=== PATIENT | male | born 1975 | race Caucasian/White ===

== ENCOUNTER 2020-12-03 14:36 | Emergency (ER) | payer MEDICAID, SELFPAY ==
[2020-12-03 15:10] VITALS: BP 138/84; BP 158/84; PULSE 78; RESP 14; TEMP 36.7; O2SAT 99; BMI 30.2
[2020-12-03 16:04] LABS: Appearance Urine CLEAR; Color Urine YELLOW; Glucose Urine UA NEG (NEG); Leukocyte Esterase Urine NEG (NEG); Nitrite Urine NEG (NEG); Specific Gravity - Urine 1.015 (1.005-1.025); Urine Blood NEG (NEG); Urine Ketones NEG (NEG); Urine Protein NEG (NEG-TRACE)
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
[2020-12-03 16:19] LABS: Amphetamine Screen Urine Not Detected (Not Detect); Barbiturates, Urine Not Detected (Not Detect); Benzodiazepines Screen Urine Not Detected (Not Detect); Cannabinoid Screen Urine Not Detected (Not Detect); Cocaine Screen Urine Not Detected (Not Detect); Fentanyl, urine Not Detected (Not Detect); Opiate Screen Urine Not Detected (Not Detect); Phencyclidine Screen Urine Not Detected (Not Detect)
[2020-12-03 18:05] LABS: COVID-19 Test Negative (Negative)
--- NOTE | 2020-12-03 19:22 | MHC.CARE ---
CARE team contacted Juan re: pt who arrived on a Sect 12a from community after being seen by Juan. Clarification needed on his status in the ED. Initial evaluation has been completed, pt is for an [facility] follow up on Thursday due to concerns that pt may have been under the influence during assessment, and likely because he had huffed aerosol spray during the assessment itself. He will remain in ED pending [facility] re-evaluation tomorrow.
[2020-12-03 19:39] LABS: MANUAL DIFF FLAG NO
[2020-12-03 19:41] LABS: Basophils Percent Auto 0.2 % (0-2); Eosinophils Absolute Auto 0.1 X10*3/uL (0.0-0.4); Eosinophils Percent Auto 1.6 % (0-4); Hematocrit 41.8 % (42-52); Hemoglobin 14.6 g/dl (14.0-18.0); Imm Gran Abs Auto 0.03 X10*3/uL (0.00-0.03); Imm Gran Pct Auto 0.4 % (0.0-0.4); Lymphocytes Absolute Auto 2.9 X10*3/uL (1.2-4.9); Lymphocytes Percent Auto 35.9 % (20-40); Mean Corpuscular HGB Conc 34.9 g/dl (31.0-36.0); Mean Corpuscular Hemoglobin 32.2 pg (27.0-33.0); Mean Corpuscular Volume 92.1 fL (80-98); Mean Platelet Volume 10.1 fL (9.4-12.4); Monocytes Absolute Auto 0.6 X10*3/uL (0.1-1.2); Monocytes Percent Auto 7.9 % (2-11); Neutrophils Absolute Auto 4.3 X10*3/uL (2.0-8.3); Platelet Count 172 X10*3/uL (160-400); Red Blood Count 4.54 X10*6/uL (4.60-5.80); Red Cell Distribution Width 13.2 % (11.0-16.0)
[2020-12-03 19:53] LABS: Ethanol < 10 mg/dL
[2020-12-03 19:57] LABS: Alanine Aminotransferase 12 U/L (0-40); Albumin Level 4.6 g/dL (3.5-5.0); Alkaline Phosphatase 232 U/L (39-117); Anion Gap 14 (12-20); Aspartate Amino Transferase 18 U/L (5-37); Bilirubin Direct 0.3 mg/dL (0.0-0.5); Bilirubin Total 0.9 mg/dL (0.0-1.0); Blood Urea Nitrogen 16 mg/dL (9-16); Calcium 9.2 mg/dL (8.4-10.2); Carbon Dioxide 22 mmol/L (22-29); Chloride 107 mmol/L (96-108); Creatinine Clr Calc Pharmacy 130.8; Estimated Glomerular Filt Rate > 60; Glucose Random 83 mg/dL (60-115); Potassium 3.9 mmol/L (3.3-5.1); Sodium 139 mmol/L (135-145); Total Protein 7.3 g/dL (6.5-8.0)
[2020-12-03] MEDS: Nicotine Polacrilex 2 MG GUM BUCCAL (22:49)
[2020-12-04 04:06] VITALS: BP 131/73; PULSE 80; RESP 17; TEMP 36.9; O2SAT 99
--- NOTE | 2020-12-04 05:49 | PC.NURSE ---
Patient slept through the night, fixated on his methadone dose, patient think he should not be here, patient is Jacky follow up with N in the morning, VSS, refusing his medication stating he does need one, he is doing fine on Methadone, VSS, will continue to monitor.
--- NOTE | 2020-12-04 06:37 | PC.NURSE ---
Patient's methadone dose verified/faxed to pharmacy, med rec completed, pending provider approval.
--- NOTE | 2020-12-04 07:05 | PC.NURSE ---
patient appears to remain asleep at present respirations are even and unlabored, patient appears in no distress
[2020-12-04] MEDS: methADONE HCl 20 MG/2 ML ORAL.CONC 135 MG PO (08:00)
[2020-12-04 08:01] VITALS: BP 131/73; PULSE 80
[2020-12-04 08:20] VITALS: BP 132/88; PULSE 79; RESP 16; TEMP 36.6; O2SAT 97
== END 2020-12-04 12:33 | disposition home or self-care (01) ==
PROVIDERS: Nurse Practitioner Family; Emergency Provider Emergency Medicine
DX: F33.1 Major depressive disorder, recurrent, moderate (principal); R41.82 Altered mental status, unspecified; R45.851 Suicidal ideations; F18.10 Inhalant abuse, uncomplicated; F19.959 Other psychoactive substance use, unspecified with psychoactive substance-induced psychotic disorder, unspecified; Z20.822 Contact with and (suspected) exposure to COVID-19; Z79.899 Other long term (current) drug therapy
CPT/HCPCS: 36415; 80048; 80076; 80307; 81003; 82077; 85025; 87635; 99284

== ENCOUNTER → 2021-03-19 12:30 | Outpatient (BNV) | payer MEDICAID, SELFPAY | PROVIDERS: PCP Internal Medicine; Visit Provider Internal Medicine Medical Oncology | DX: R74.8 Abnormal levels of other serum enzymes (principal) | CPT/HCPCS: 99203; 99213 ==

== ENCOUNTER 2021-04-01 14:34 | Outpatient (REF) | payer MEDICAID, SELFPAY ==
--- NOTE | ~2021-04-01 | US_ITS ---
EXAMINATION: US VENOUS ULTRASOUND WITH DOPPLER LOWER EXTREMITY, BILATERAL CLINICAL INFORMATION: Bilateral lower extremity edema COMPARISON: None TECHNIQUE: Ultrasound of the deep veins is performed from the hip to the calf with compression sonography and color and pulse Doppler assessment. Spectral analysis with color-flow imaging is performed. FINDINGS: RIGHT: There is normal venous compression and respiratory variation and augmented flow. The visualized common femoral vein, superficial femoral vein, profunda femoral vein, popliteal vein, and the trifurcation region shows no evidence of deep venous thrombosis. There is no significant popliteal fossa cyst. LEFT: There is normal venous compression and respiratory variation and augmented flow. The visualized common femoral vein, superficial femoral vein, profunda femoral vein, popliteal vein, and the trifurcation region shows no evidence of deep venous thrombosis. There is no significant popliteal fossa cyst. If the patient's symptoms persist, followup ultrasound in 5 days 7 days might be of value to exclude proximal propagation from a non-visualized calf vein. US/US venous duplex LE BI IMPRESSION: No DVT identified involving either lower extremity.
== END 2021-04-01 14:35 | disposition home or self-care (01) ==
LOC: HO.HMGCX 14:34
PROVIDERS: Visit Provider Emergency Medicine
DX: R60.0 Localized edema (principal)
CPT/HCPCS: 93970

== ENCOUNTER → 2021-04-30 11:21 | Outpatient (BNVA) | payer MEDICAID, SELFPAY | PROVIDERS: PCP Internal Medicine; Visit Provider Surgery Vascular Surgery | DX: M79.89 Other specified soft tissue disorders (principal); I83.11 Varicose veins of right lower extremity with inflammation | CPT/HCPCS: 99202 ==

== ENCOUNTER → 2021-05-14 12:14 | Outpatient (BNVA) | payer MEDICAID, SELFPAY | PROVIDERS: PCP Internal Medicine; Referring Provider Internal Medicine; Visit Provider Internal Medicine | DX: R07.2 Precordial pain (principal); R06.02 Shortness of breath; M79.89 Other specified soft tissue disorders | CPT/HCPCS: 93005; 99202 ==

== ENCOUNTER → 2021-05-22 10:07 | Outpatient (REF) | payer MEDICAID, SELFPAY ==
--- NOTE | ~2021-05-22 | NM_ITS ---
Lexiscan Myocardial perfusion study Indication: Chest pain, assess for coronary disease and ischemia Technique: The patient was brought in for a Lexiscan perfusion study on 05/22/2021 and was injected 0.4 mg of Lexiscan intravenously. Within a minute of this injection 35 mCi of sestamibi was given intravenously. Images were obtained using the SPECT gamma camera interlaced with the gating device. Images were obtained in supine position. Resting perfusion study was performed on 05/29/2021. Patient was administered 35 mCi of sestamibi intravenously at rest. Images were then obtained in supine position. Total DLP 100mGy-cm. Images were processed with the software and compared side to side in short axis, horizontal long axis and vertical long axis views. Findings: Raw acquisition reviewed. The stress perfusion study showed no significant perfusion abnormality. Attenuation corrected images are not of good quality. The gated study shows normal LV systolic function with calculated LVEF of 61%. LV cavity is normal in size. The gated study shows normal wall thickening and contraction of segments. Resting study shows no significant perfusion abnormality. Gating at rest reveals normal wall motion with ejection fraction at 62%. The findings are consistent with no definite reversible or fixed perfusion defects. NM/NM cardiolite stress test Impression: 1. Myocardial perfusion imaging study shows no clear evidence of any ischemia or infarction. Likely normal myocardial perfusion. 2. Gated LVEF is 61% during stress and 62% during rest. 3. Transient ischemic dilatation not present. EKG component of the test reported separately.
--- NOTE | 2021-05-22 10:09 | CA_ITS ---
Acquisition Time: 2021-05-22 10:19:55 Total Exercise Time: 00:02:00 Test Indications: CP, SOB Medications: SEE CHART Protocol: LEXISCAN Max HR: 100 BPM 56% of Pred: 176 BPM Max BP: 124/064 mmHG Max Work Load: 1.0 METS Pharmacological stress test with Lexiscan injection, while sitting and kicking legs, without anginal symptoms, without arrythmia, with normotensive response to injection, with nondiagnostic EKG for ischemia. In recovery he reported feeling weird which was treated with Aminophylline 75mg IVP to reverse Lexiscan with resolution of symptom. Nuclear images pending. Test reviewed with Dr Wall. Referred By: Joey Zaidi Overread By: IMTIAZ JONES
== END ==
LOC: HO.CARD 10:07
PROVIDERS: Visit Provider Internal Medicine
DX: R07.2 Precordial pain (principal); R06.02 Shortness of breath
CPT/HCPCS: 78452; 93017; A9500; J2785

== ENCOUNTER 2021-05-29 10:46 | Outpatient (REF) | payer MEDICAID, SELFPAY ==
--- NOTE | ~2021-05-29 | US_ITS ---
EXAMINATION: US LOWER EXTREMITY VENOUS (REFLUX EXAM), BILATERAL CLINICAL INDICATION: This is a 46-year-old male with venous insufficiency. Varicose veins. Bilateral lower extremity edema. COMPARISON: None. TECHNIQUE: Color flow triplex imaging and compression Doppler was performed to evaluate both the deep and the superficial systems bilaterally. To evaluate the superficial system, the examination was performed in the upright position. Color-flow Doppler ultrasound and compression ultrasound were utilized. In addition, maneuvers were utilized to demonstrate reflux. FINDINGS: 1. DEEP VENOUS ULTRASOUND OF THE RIGHT LOWER EXTREMITY: Common Femoral Vein: Compressible, normal respiratory variation and augmented flow. Femoral vein: Compressible, normal color flow and augmentation. Popliteal Vein: Compressible, normal augmentation. Deep Reflux: There is no evidence of reflux in the deep system in either the common femoral vein or the popliteal vein. There is no evidence of a Carson's cyst. 2. SUPERFICIAL ULTRASOUND WITH DOPPLER OF RIGHT LOWER EXTREMITY: GREAT SAPHENOUS VEIN: Saphenofemoral Junction: 0.7 cm. There is no reflux at the junction. Mid Thigh: 0.4 cm Above Knee: 0.4 cm. There is no reflux at this level or above. Below Knee: 0.3 cm. The reflux time is 1784 ms. Mid Calf: 0.3 cm. The reflux time is 1006 and 24 ms. Ankle: 0.3 cm. The reflux time is 1000 ms. GSV REFLUX: No evidence of reflux. DUPLICATED GREAT SAPHENOUS VEIN: There is a 0.3 cm duplicated lateral great saphenous vein without reflux. SMALL SAPHENOUS VEIN: Proximal: 0.3 cm Distal: 0.2 cm SSV REFLUX: No evidence of reflux. VEIN OF GIACOMINI: None Imaged. PERFORATORS: There is a 0.2 cm proximal calf and mid calf, respectively, bobbin washer without reflux. VARICOSITIES: There are 0.3 cm proximal thigh, at the knee, proximal calf varicose veins without reflux. 3. DEEP VENOUS ULTRASOUND OF THE LEFT LOWER EXTREMITY: Common Femoral Vein: Compressible, normal respiratory variation and augmented flow. Femoral Vein: Compressible, normal color flow and augmentation. Popliteal Vein: Compressible, normal augmentation. Deep Reflux: There is no evidence of reflux in the deep system in either the common femoral vein or the popliteal vein. There is no evidence of a Carson's cyst. 4. SUPERFICIAL ULTRASOUND WITH DOPPLER OF LEFT LOWER EXTREMITY: GREAT SAPHENOUS VEIN: Saphenofemoral Junction: 0.7 cm. There is no reflux at the junction. Mid Thigh: 0.2 cm Above Knee: 0.3 cm. There is no reflux at this level and above. Below Knee: 0.4 cm. The reflux time is 2556 ms. Mid Calf: 0.2 cm. There is no reflux. Ankle: 0.2 cm. There is no reflux. GSV REFLUX: No evidence of reflux. DUPLICATED GREAT SAPHENOUS VEIN: There is a 0.4 cm duplicated lateral great saphenous vein without reflux. SMALL SAPHENOUS VEIN: Proximal: 0.3 cm Distal: 0.2 cm SSV REFLUX: No evidence of reflux. VEIN OF GIACOMINI: None Imaged. PERFORATORS: There is a 0.2 cm bobbin washer at the knee without reflux. VARICOSITIES: There is a 0.3 cm proximal thigh varicose vein without reflux. US/US venous duplex LE BI IMPRESSION: 1. There are patent bilateral great saphenous veins without reflux at the saphenofemoral junction or within the thigh. 2. There are patent bilateral duplicated lateral great saphenous veins and small saphenous veins, respectively, without evidence of reflux. 3. There are patent bilateral varicose veins without reflux.
[2021-05-29 10:58] LABS: MANUAL DIFF FLAG NO
[2021-05-29 11:36] LABS: Basophils Absolute Auto 0.1 X10*3/uL (0.0-0.2); Eosinophils Absolute Auto 0.2 X10*3/uL (0.0-0.4); Eosinophils Percent Auto 4.3 % (0-4); Hemoglobin 13.4 g/dl (14.0-18.0); Imm Gran Abs Auto 0.03 X10*3/uL (0.00-0.03); Imm Gran Pct Auto 0.6 % (0.0-0.4); Lymphocytes Absolute Auto 1.9 X10*3/uL (1.2-4.9); Lymphocytes Percent Auto 37.2 % (20-40); Mean Corpuscular HGB Conc 34.4 g/dl (31.0-36.0); Mean Corpuscular Hemoglobin 30.9 pg (27.0-33.0); Mean Corpuscular Volume 89.9 fL (80.0-98.0); Mean Platelet Volume 10.3 fL (9.4-12.4); Monocytes Absolute Auto 0.4 X10*3/uL (0.1-1.2); Monocytes Percent Auto 8.2 % (2-11); Neutrophils Absolute Auto 2.5 x10*3/uL (2.0-8.3); Neutrophils Percent Auto 48.7 % (45-73); Platelet Count 184 X10*3/uL (160-400); Red Blood Count 4.34 X10*6/uL (4.60-5.80); Red Cell Distribution Width 13.5 % (11.0-16.0); White Blood Count 5.1 X10*3/uL (4.8-10.8)
[2021-05-29 12:17] LABS: Cholesterol 191 mg/dL; HDL Cholesterol 25 mg/dL; Triglycerides 603 mg/dL
[2021-05-29 12:22] LABS: Alanine Aminotransferase 48 U/L (0-40); Albumin Level 3.7 g/dL (3.5-5.0); Alkaline Phosphatase 254 U/L (39-117); Anion Gap 14 (12-20); Aspartate Amino Transferase 43 U/L (5-37); Bilirubin Total 0.9 mg/dL (0.0-1.0); Blood Urea Nitrogen 6 mg/dL (9-16); Calcium 8.5 mg/dL (8.4-10.2); Carbon Dioxide 22 mmol/L (22-29); Chloride 107 mmol/L (96-108); Estimated Glomerular Filt Rate > 60; Glucose Random 128 mg/dL (60-115); Potassium 3.9 mmol/L (3.3-5.1); Sodium 139 mmol/L (135-145); Total Protein 6.6 g/dL (6.5-8.0)
== END 2021-05-29 10:47 | disposition home or self-care (01) ==
LOC: HO.US 10:46
PROVIDERS: Internal Medicine Medical Oncology; Absent Provider Nurse Practitioner Psychiatric/Mental Health; PCP Internal Medicine; Visit Provider Surgery Vascular Surgery
DX: I83.11 Varicose veins of right lower extremity with inflammation (principal); R60.0 Localized edema; R74.8 Abnormal levels of other serum enzymes; Z51.81 Encounter for therapeutic drug level monitoring; Z79.899 Other long term (current) drug therapy
CPT/HCPCS: 36415; 80053; 80061; 85025; 93970

== ENCOUNTER → 2021-05-30 14:13 | Outpatient (BNVA) | payer MEDICAID, SELFPAY | PROVIDERS: PCP Internal Medicine; Visit Provider Surgery Vascular Surgery | DX: I83.11 Varicose veins of right lower extremity with inflammation (principal) | CPT/HCPCS: 99212 ==

== ENCOUNTER → 2021-06-20 09:41 | Outpatient (REF) | payer MEDICAID, SELFPAY ==
--- NOTE | 2021-06-20 09:44 | CA_ITS ---
Transthoracic Echocardiogram Patient (Last, First, Middle): Vadim Colmenares, Gender: Male Date of : 1975 Age: 46 Procedure Date: 06/20/2021 Procedure Type: Transthoracic Echocardiogram Location: OP Height: 175.26 cm Weight: 103.42 kg BSA: 2.18 m2 Heart Rate: bpm BP: 120 / 80 mmHg Information Consultant: SB Referring MD: Joey Zaidi MD Insurance Collector: Vinay Wall MD Symptoms: R06.02 - Shortness of breath Study Quality: Technically Difficult ECG Rhythm: Sinus Conclusions: - 1. Normal LV systolic and diastolic function 2. Normal cardiac valvular Doppler 3. No gross pericardial effusion Findings Procedure Information Contrast agent, definity, is being given per protocol without apparent complications. Left Ventricle Normal left ventricular size, thickness, and systolic function. The visually estimated ejection fraction is between 60-65%. Spectral Doppler is indicative of a normal filling pattern. Right Ventricle Normal right ventricular cavity size and systolic function. Atria The left atrium is normal in size. Interatrial shunt cannot be excluded. The right atrium is normal in size. Aortic Valve The aortic valve structure and function is likely normal. There is no aortic valve stenosis. There is no aortic valve regurgitation. Mitral Valve Likely normal mitral valve structure and function. There is trace mitral valve regurgitation. There is no mitral valve stenosis. Pulmonic Valve The pulmonic valve was not well visualized. Tricuspid Valve The tricuspid valve was not well visualized. Tricuspid regurgitation envelope is inadequate for calculation of right ventricular systolic pressure. Great Vessels The aorta was not well visualized. The pulmonary artery was not well visualized. Venous The inferior vena cava is normal in size and collapses greater than 50% with inspiration. Pericardium/Pleural There is no evidence of pericardial effusion. Prior Study Comparison No prior study available for comparison. Measurements 2D Linear Measurements IVSd: 0.93 0.6-0.9/0.6-1.0 cm LVIDd: 4.83 3.9-5.3/4.2-5.9 cm LVIDd Index: 2.22 2.4-3.2/2.2-3.1 cm/m2 LVIDs: 3.05 2.0-3.6 cm LVPWd: 0.86 0.7-1.1 cm LA Diam: 3.70 2.7-3.8/3.0-4.0 cm LAIDs Index: 1.70 1.5-2.3 cm/m2 LV Mass: 184.67 67-162/88-224 g LV Mass Index: 84.71 43-95/49-115 g/m2 LVOT Diam: 2.30 3.0+(-)1.3 cm 2D Systolic Function EF 4C: 68.30 >55% EF 2C: 60.30 >55% EF BiP: 64.50 >55% Mitral Valve MV Pk E: 0.73 MV PK A: 0.48 MV Decel Time: 176.00 E/A: 1.50 E'Lateral: 11.00 E'Medial: 9.46 E/E' Med: 7.70 E/E' Lat: 6.70 PHT: 52.00 MVA PHT: 4.23 Decel [place]: 4.16 Aortic Valve AoV Pk Gildardo: 1.43 AoV Mn Gildardo: 0.98 AoV VTI: 0.27 AoV Pk Grad: 8.00 Aov Mn Grad: 4.00 SAMIA Cont.VTI: 2.90 LVOT LVOT Pk Gildardo: 1.05 LVOT Mn Gildardo: 0.70 LVOT VTI: 0.19 LVOT Pk Grad: 4.00 LVOT Mn Grad: 3.00 LVOT Diam: 2.30 LVOT Area: 4.15 Diastolic Function MV Pk E: 0.73 MV Pk A: 0.48 E/A: 1.50 E'Medial: 9.46 E/E' Med: 7.70 E' Laterial: 11.00 E/E' Lat: 6.70 Right Ventricle TAPSE (mm): 20.30 TVS' Gildardo: 11.50 Great Vessels Aorta Sinus of Valsalva: 2.90 2.0-3.[address] [place]: 2.85 1.7-3.4 cm Ao Asc: 2.70 2.1-3.4 cm Pulmonary Veins Pulm Vein S/D 0.80 Pulmonary Valve PV Pk Gildardo: 1.05 Peak PV Grad: 4.00 Updated in Other Vendor System with Status of Final Vinay Wall MD electronically signed on 06/20/2021 5:41:01 PM with status of Final
== END ==
LOC: HO.CARD 09:41
PROVIDERS: PCP Internal Medicine; Visit Provider Internal Medicine
DX: R06.02 Shortness of breath (principal)
CPT/HCPCS: 93306; Q9957

== ENCOUNTER 2021-06-27 08:36 | Day surgery (SDC) | payer MEDICAID, SELFPAY ==
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
[2021-06-27 08:28] VITALS: BMI 31.8
[2021-06-27 08:51] VITALS: BP 115/75; PULSE 89; RESP 18; TEMP 36.4; O2SAT 97
[2021-06-27] MEDS: Lactated Ringers 1,000 ML 100 ML IVCONT (09:01)
[2021-06-27 11:03] VITALS: BP 126/73; PULSE 80; RESP 16; TEMP 37; O2SAT 97
[2021-06-27 11:15] VITALS: BP 116/88; PULSE 74; RESP 16; O2SAT 97
--- NOTE | 2021-06-27 11:22 | PM.HEMONCBM ---
Bone Marrow Aspiration - Bone Marrow Aspiration Procedure:: *Service Date: [06/27/21] Pre Op Diagnosis:: Elevated AP. ?Myelofibrosis. Post Op Diagnosis:: Same. Surgeon:: Teresa Jaeger. Anesthesia:: Teresa Jaeger. Consent:: Informed consent obtained from the patient for the procedure. Pros and cons of biopsy explained. The patient was willing to proceed with the procedure under local anesthesia. Procedure in Detail:: *Service Date: 06/27/21. *Procedure: Bone marrow spread and biopsy. *Pre Op Dx: Myelofibrosis. *Post Op Dx: Same. *Surgeon: Teresa Jaeger. The patient was positioned prone. The left posterior superior iliac spine prepped and draped. Patient was anesthetized under MAC. Under aseptic precautions, 5 ml of 1% lidocaine used for local anesthesia. Bone marrow aspirate was taken. Seemed more like a dry tap. With the Jamshidi needle,a core biopsy obtained. Specimens were sent for Dc stain, flow cytometry and cytogenetics. Biopsy was sent for histology. The patient tolerated the procedure well. Bandage was applied and patient was positioned on his back for 10 to 15 minutes after the procedure. The patient was advised to call us if he develops any pain or swelling at the surgical site. Follow up in 2 weeks.
[2021-06-27 11:30] VITALS: BP 160/83; PULSE 80; RESP 16; TEMP 36.6; O2SAT 97
[2021-06-27 11:40] LABS: Bone Marrow SEE SEPARATE REPORT
== END 2021-06-27 12:03 | disposition home or self-care (01) ==
PROVIDERS: PCP Internal Medicine; Visit Provider Internal Medicine Medical Oncology
PROC: (CPT 38221; principal; 2021-06-27 10:00)
DX: R74.8 Abnormal levels of other serum enzymes (principal); R93.7 Abnormal findings on diagnostic imaging of other parts of musculoskeletal system; D75.81 Myelofibrosis; M89.8X9 Other specified disorders of bone, unspecified site; R53.83 Other fatigue; I83.819 Varicose veins of unspecified lower extremity with pain; F11.20 Opioid dependence, uncomplicated; F17.210 Nicotine dependence, cigarettes, uncomplicated; Z79.899 Other long term (current) drug therapy; Z88.0 Allergy status to penicillin; Z88.8 Allergy status to other drugs, medicaments and biological substances; Z87.828 Personal history of other (healed) physical injury and trauma
CPT/HCPCS: 38222; 36415; 85097; 88184; 88185; 88237; 88264; 88305; 88311; 88313; J1642; J2250

== ENCOUNTER → 2021-06-28 12:10 | Outpatient (BNVA) | payer MEDICAID, SELFPAY | PROVIDERS: PCP Internal Medicine; Visit Provider Surgery Vascular Surgery | DX: I83.11 Varicose veins of right lower extremity with inflammation (principal) | CPT/HCPCS: 36475 ==

== ENCOUNTER 2021-07-01 13:52 | Outpatient (REF) | payer MEDICAID, SELFPAY ==
--- NOTE | ~2021-07-01 | US_ITS ---
EXAMINATION: US VENOUS WITH DOPPLER LOWER EXTREMITY, RIGHT CLINICAL INFORMATION: Pain in right leg. Post radiofrequency ablation. COMPARISON: None TECHNIQUE: Ultrasound of the deep veins is performed from the hip to the calf with compression sonography and color and pulse Doppler assessment. Spectral analysis with color-flow imaging is performed. FINDINGS: There is normal venous compression and respiratory variation and augmented flow. The visualized common femoral vein, superficial femoral vein, profunda femoral vein, popliteal vein, and the trifurcation region shows no evidence of deep venous thrombosis. There is no significant popliteal fossa cyst. There is a clot visualized in the greater saphenous vein approximately 2.56 cm from common femoral venous junction. If the patient's symptoms persist, followup ultrasound in 5 days 7 days might be of value to exclude proximal propagation from a non-visualized calf vein. US/US venous duplex LE RT IMPRESSION: 1. No DVT demonstrated in the right lower extremity. 2. There is a clot in the right greater saphenous vein 2.56 cm from the common femoral venous junction status post radiofrequency ablation.
== END 2021-07-01 13:53 | disposition home or self-care (01) ==
LOC: HO.US 13:52
PROVIDERS: Visit Provider Surgery Vascular Surgery
DX: M79.604 Pain in right leg (principal)
CPT/HCPCS: 93971

== ENCOUNTER 2021-07-16 11:12 | Day surgery (SDC) | payer MEDICAID, SELFPAY ==
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
--- NOTE | ~2021-07-16 | CT_ITS ---
EXAMINATION: CT GUIDED BONE MARROW BIOPSY CLINICAL INFORMATION: Mild fibrosis. COMPARISON: None TECHNIQUE: Following explaining CT fluoroscopy-guided iliac crest bone marrow biopsy procedure, benefits and risks, a written consent was obtained. Anesthesia obtained its own consent. Patient was placed prone on CT fluoroscopy table and preliminary CT imaging was obtained. An optimal site was selected along the left posterior iliac crest and marked on the skin. The marked area was cleaned and draped in usual sterile manner. 1% lidocaine was injected at the skin and around the left posterior iliac crest spine periosteum. Through a small skin incision a 14-gauge guide needle was advanced and drilled through the posterior iliac crest cortex into the bone marrow. Coaxially a 14 Prydeinig needle was advanced with a drill and thick sclerotic core bone marrow tissue was obtained. Subsequently EDTA and heparin within 2 separate syringes was attached to the guide needle and bone marrow aspiration was performed. After obtaining enough of aspiration samples, the stylet was reintroduced and the guide needle was drilled back out. Complete hemostasis achieved at puncture site. Sterile dressing applied postprocedure. Sedation was provided by anesthesia department. FINDINGS: Successful CT fluoroscopy guided bone marrow biopsy and aspiration x2 with EDTA and heparin was performed. On preliminary CT imaging there is extensive sclerosis of pelvic bones. The soft tissues are normal. CT/CT biopsy aspirate bone marrow IMPRESSION: Successful CT fluoroscopy-guided iliac crest bone marrow biopsy and bone marrow aspiration x2 was performed.
[2021-07-16 12:16] VITALS: BMI 33.5
[2021-07-16 12:21] LABS: INTERNATIONAL NORM RATIO 1.1 (0.9-1.1); Prothrombin Time 12.1 SEC (9.9-13.0)
[2021-07-16 12:24] LABS: Partial Thromboplastin Time 40.1 SEC (24.1-38.0)
[2021-07-16 12:31] VITALS: BP 128/64; PULSE 71; RESP 15; TEMP 36.9; O2SAT 95
[2021-07-16] MEDS: Lactated Ringers 1,000 ML 100 ML IVCONT (12:39)
[2021-07-16 14:51] VITALS: BP 105/36; PULSE 85; RESP 18; TEMP 37; O2SAT 98
[2021-07-16] MEDS: Lidocaine HCl 1 % MPF 5 ML VIAL SUBCUT (14:54)
[2021-07-16 14:59] LABS: Bone Marrow SEE SEPARATE REPORT
[2021-07-16 15:11] VITALS: BP 109/68; PULSE 88; RESP 18; TEMP 37.1; O2SAT 97
[2021-07-16 15:21] VITALS: BP 107/70; PULSE 81; RESP 16; TEMP 37.1; O2SAT 97
== END 2021-07-16 15:31 | disposition home or self-care (01) ==
PROVIDERS: Radiology Diagnostic Radiology; PCP Internal Medicine; Visit Provider Internal Medicine Medical Oncology
DX: R74.8 Abnormal levels of other serum enzymes (principal); R53.83 Other fatigue; F11.20 Opioid dependence, uncomplicated; Z87.828 Personal history of other (healed) physical injury and trauma; Z98.890 Other specified postprocedural states; Z79.899 Other long term (current) drug therapy; Z88.0 Allergy status to penicillin; Z88.8 Allergy status to other drugs, medicaments and biological substances; F17.210 Nicotine dependence, cigarettes, uncomplicated
CPT/HCPCS: 36415; 38222; 85097; 85610; 85730; 88184; 88185; 88237; 88264; 88305; 88311; 88313; J1642; J2250; J3010

== ENCOUNTER 2021-07-22 08:52 | Outpatient (REF) | payer MEDICAID, SELFPAY ==
[2021-07-22 09:46] LABS: Baso%MD 0.3 %; Eos%MD 3.5 %; Hematocrit 38.5 % (42.0-52.0); Hemoglobin 12.8 g/dl (14.0-18.0); IG%MD 0.7 %; Lymph%MD 32.1 %; Mean Corpuscular HGB Conc 33.2 g/dl (31.0-36.0); Mean Corpuscular Hemoglobin 29.9 pg (27.0-33.0); Mono%MD 9.4 %; Platelet Count 185 X10*3/uL (160-400); Red Blood Count 4.28 X10*6/uL (4.60-5.80); Red Cell Distribution Width 13.5 % (11.0-16.0); White Blood Count 5.8 X10*3/uL (4.8-10.8)
[2021-07-22 10:18] LABS: Alanine Aminotransferase 34 U/L (0-40); Albumin Level 4.1 g/dL (3.5-5.0); Alkaline Phosphatase 200 U/L (39-117); Anion Gap 13 (12-20); Aspartate Amino Transferase 23 U/L (5-37); Bilirubin Total 0.8 mg/dL (0.0-1.0); Blood Urea Nitrogen 30 mg/dL (9-16); Calcium 9.3 mg/dL (8.4-10.2); Carbon Dioxide 24 mmol/L (22-29); Chloride 105 mmol/L (96-108); Estimated Glomerular Filt Rate > 60; Glucose Random 131 mg/dL (60-115); Potassium 5.2 mmol/L (3.3-5.1); Sodium 137 mmol/L (135-145); Total Protein 6.8 g/dL (6.5-8.0)
[2021-07-22 10:22] LABS: Erythrocyte Sedimentation Rate 19 MM/HR (0-15)
[2021-07-22 10:29] LABS: Vitamin D 25-OH Total 85.3 ng/mL (>30)
[2021-07-22 10:49] LABS: Band Neutrophils Percent 1 % (3-5); Eosinophils Absolute Manual 0.2 X10*3/uL (0.0-0.4); Eosinophils Percent Manual 3 % (0-4); Lymphocytes Absolute Manual 1.8 X10*3/uL (1.2-4.9); Lymphocytes Percent Manual 31 % (20-40); Monocytes Absolute Manual 0.2 X10*3/uL (0.1-1.2); Monocytes Percent Manual 3 % (2-11); Neutrophils Absolute Manual 3.7 X10*3/uL (2.0-8.3); Neutrophils Percent Manual 62 % (45-73)
[2021-07-22 10:50] LABS: Platelet Estimate NORMAL (NORMAL); Platelet Morphology Comment NORMAL; RBC Morphology NORMAL
[2021-07-23 14:47] LABS: Calcium (PTHI) 9.2 mg/dL (8.6-10.3); PTHI 53 pg/mL (16-77)
[2021-07-23 15:06] LABS: Kappa Light Chain, Free Serum 23.8 mg/L (3.3-19.4); Lambda Light Chain, Free Serum 23.9 mg/L (5.7-26.3)
[2021-07-25 17:31] LABS: IgA 204 mg/dL (47-310); IgG 1032 mg/dL (600-1640); IgM 172 mg/dL (50-300)
[2021-07-27 06:11] LABS: Alk.Phos Iso. Macrohepatic 0 % (<=0); Alk.Phos Isoenzymes Bone 58 % (28-66); Alk.Phos Isoenzymes Intest 4 % (1-24); Alk.Phos Isoenzymes Liver 38 % (25-69); Alk.Phos Isoenzymes Placental 0 % (<=0); Alk.Phos Isoenzymes Total 190 U/L (36-130)
== END 2021-07-22 08:53 | disposition home or self-care (01) ==
LOC: HO.LAB 08:52
PROVIDERS: PCP Internal Medicine; Visit Provider Internal Medicine Medical Oncology
DX: R74.8 Abnormal levels of other serum enzymes (principal)
CPT/HCPCS: 36415; 80053; 82306; 82784; 83521; 83970; 84080; 85007; 85027; 85652; 86334; 88184; 88185

== ENCOUNTER 2021-07-24 08:25 | Outpatient (REF) | payer MEDICAID, SELFPAY ==
[2021-07-24 09:50] LABS: MANUAL DIFF FLAG NO
[2021-07-24 10:04] LABS: Basophils Percent Auto 0.5 % (0-2); Eosinophils Absolute Auto 0.2 X10*3/uL (0.0-0.4); Eosinophils Percent Auto 3.3 % (0-4); Hemoglobin 12.5 g/dl (14.0-18.0); Imm Gran Abs Auto 0.04 X10*3/uL (0.00-0.03); Imm Gran Pct Auto 0.6 % (0.0-0.4); Lymphocytes Absolute Auto 1.5 X10*3/uL (1.2-4.9); Lymphocytes Percent Auto 22.7 % (20-40); Mean Corpuscular HGB Conc 33.8 g/dl (31.0-36.0); Mean Corpuscular Hemoglobin 30.1 pg (27.0-33.0); Mean Corpuscular Volume 89.2 fL (80.0-98.0); Mean Platelet Volume 10.1 fL (9.4-12.4); Monocytes Absolute Auto 0.7 X10*3/uL (0.1-1.2); Monocytes Percent Auto 10.2 % (2-11); Neutrophils Absolute Auto 4.2 x10*3/uL (2.0-8.3); Neutrophils Percent Auto 62.7 % (45-73); Platelet Count 179 X10*3/uL (160-400); Red Blood Count 4.15 X10*6/uL (4.60-5.80); Red Cell Distribution Width 13.8 % (11.0-16.0); White Blood Count 6.6 X10*3/uL (4.8-10.8)
[2021-07-24 10:38] LABS: Alanine Aminotransferase 39 U/L (0-40); Albumin Level 4.3 g/dL (3.5-5.0); Alkaline Phosphatase 193 U/L (39-117); Anion Gap 14 (12-20); Aspartate Amino Transferase 38 U/L (5-37); Bilirubin Total 0.7 mg/dL (0.0-1.0); Blood Urea Nitrogen 22 mg/dL (9-16); Carbon Dioxide 22 mmol/L (22-29); Chloride 107 mmol/L (96-108); Estimated Glomerular Filt Rate > 60; Glucose Random 87 mg/dL (60-115); Potassium 4.7 mmol/L (3.3-5.1); Sodium 138 mmol/L (135-145)
[2021-07-24 10:52] LABS: Free T4 (Free Thyroxine) 0.55 ng/dL (0.71-1.85); Thyroid Stimulating Hormone 1.53 uIU/mL (0.32-4.0)
== END 2021-07-24 08:26 | disposition home or self-care (01) ==
LOC: HO.LAB 08:25
PROVIDERS: Internal Medicine Medical Oncology; PCP Internal Medicine; Visit Provider Internal Medicine Endocrinology, Diabetes & Metabolism
DX: R74.8 Abnormal levels of other serum enzymes (principal); Z13.29 Encounter for screening for other suspected endocrine disorder
CPT/HCPCS: 36415; 80053; 83520; 84439; 84443; 85025; 99202

== ENCOUNTER → 2021-07-26 13:43 | Outpatient (BNVA) | payer MEDICAID, SELFPAY | PROVIDERS: PCP Internal Medicine; Referring Provider Internal Medicine; Visit Provider Nurse Practitioner | DX: R15.9 Full incontinence of feces (principal); K58.2 Mixed irritable bowel syndrome; K21.9 Gastro-esophageal reflux disease without esophagitis | CPT/HCPCS: 99202; 99212 ==

== ENCOUNTER 2021-08-07 08:21 | Outpatient (REF) | payer MEDICAID, SELFPAY | END 2021-08-07 08:22 | disposition home or self-care (01) | LOC: HO.LAB 08:21 | PROVIDERS: PCP Internal Medicine; Visit Provider Nurse Practitioner | DX: Z13.89 Encounter for screening for other disorder (principal) ==

== ENCOUNTER → 2021-08-21 10:22 | Outpatient (REF) | payer MEDICAID, SELFPAY ==
--- NOTE | ~2021-08-21 | NM_ITS ---
EXAMINATION: [place] BONE MARROW SCAN OF THE WHOLE BODY CLINICAL INFORMATION: Myelofibrosis COMPARISON: CT biopsy 07/16/2021. Outside bone scan 03/05/2021 TECHNIQUE: Multiple gamma scintillation camera images of the whole body were performed 3 hours following the intravenous administration of 15 mCi Tc-99m Sulfur colloid. FINDINGS: In the head, there is mild bone marrow activity in the calvarium. In the thoracic cage and upper extremities, moderate activity seen in proximal bilateral humeri and minimal activity in lateral clavicles. In the spine, mild activity seen throughout the thoracic and lumbar spine. In the pelvis, moderate activity seen in the posterior sacrum. No bone meniscectomy seen in the left crest on the pelvic bones. In the lower extremities, moderate activity seen along the distal bilateral femora and proximal bilateral tibia. No other definite bony abnormalities are noted. The urinary bladder and faint visualization of both kidneys are noted. There is significant normal activity seen in the liver and spleen without hepatosplenomegaly. NM/IL bone scan whole body IMPRESSION: 1. Moderate activity seen along the proximal humeri, distal femur , proximal tibia and posterior sacrum. 2. Mild activity is seen in spinal vertebrae and the calvarium.
== END ==
LOC: HO.NUCMED 10:22
PROVIDERS: Visit Provider Internal Medicine Medical Oncology
DX: R74.8 Abnormal levels of other serum enzymes (principal); D75.81 Myelofibrosis
CPT/HCPCS: 78104; 78306; A9541

== ENCOUNTER 2021-09-04 12:26 | Day surgery (SDC) | payer MEDICAID, SELFPAY ==
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
[2021-09-04] VITALS (7 sets, daily range): BP systolic 117–135; BP diastolic 63–89; PULSE 68–88; RESP 16–20; TEMP 36.9–37.2; O2SAT 97–100; BMI 34.9
--- NOTE | ~2021-09-04 | CT_ITS ---
PROCEDURE: CT-GUIDED BIOPSY CLINICAL INFORMATION: Possible myelofibrosis. COMPARISON: None TECHNIQUE: Following explaining CT-guided sacral biopsy procedure, benefits and risk, a written consent was obtained. Patient was placed prone on CT fluoroscopy table and preliminary CT imaging was obtained. Markers were placed along the midline posterior back in the sacral region and repeat CT imaging was obtained. An optimal marker was selected and marked on the skin. The marked site was cleaned and draped in usual sterile manner with 2% chlorhexidine solution. 1% lidocaine was injected at the puncture site. Through a small skin incision 18-gauge guide needle was advanced from the skin to the level of periosteum of the right sacrum. Battery-powered drill was then attached to the needle and the needle drilled into the bone marrow. Simple aspiration was performed with EDTA in one syringe and heparin in the other syringe and approximately 8 to 10 mL of blood was collected in each syringe. Subsequently an 18-gauge coaxial needle was inserted and a bone narrow biopsy core was obtained. Postprocedure the stylet was reintroduced and the guide needle was drilled out. Complete hemostasis was achieved at puncture site. Patient tolerated procedure extremely well. Conscious sedation was utilized and patient monitored by anesthesia department. This CT examination was performed using dose optimization techniques as appropriate, variously including the following: *Automated exposure control *Adjustment of mA and/or kV according to patient size (this includes techniques or standardized protocols for targeted exams where dose is matched to indication/reason for exam; i.e. extremities or head) *Use of iterative reconstruction technique DLP: 290 mGy-cm FINDINGS: On preliminary CT imaging there is significant sclerosis seen in the iliac bones. There is bone marrow lucency seen in the right and left sacral bone. The SI joints are symmetrical and normal. Visualized soft tissues are normal. CT fluoroscopy-guided 2 bone marrow aspirations were performed with EDTA and heparin and sent to lab. Initial report was satisfactory as there were no clots visualized. A single core biopsy was performed with a one-inch sample collected from [address]/CT biopsy bone marrow IMPRESSION: Successful CT fluoroscopy-guided left sacral bone marrow biopsy and 2 bone aspirations performed and sent to lab.
[2021-09-04 12:44] LABS: MANUAL DIFF FLAG NO
[2021-09-04 12:45] LABS: Basophils Percent Auto 0.5 % (0-2); Eosinophils Absolute Auto 0.3 X10*3/uL (0.0-0.4); Hematocrit 38.5 % (42.0-52.0); Hemoglobin 13.1 g/dl (14.0-18.0); Imm Gran Abs Auto 0.03 X10*3/uL (0.00-0.03); Imm Gran Pct Auto 0.4 % (0.0-0.4); Lymphocytes Absolute Auto 2.6 X10*3/uL (1.2-4.9); Lymphocytes Percent Auto 34.5 % (20-40); Mean Corpuscular Volume 88.3 fL (80.0-98.0); Mean Platelet Volume 9.4 fL (9.4-12.4); Monocytes Absolute Auto 0.6 X10*3/uL (0.1-1.2); Monocytes Percent Auto 7.8 % (2-11); Neutrophils Absolute Auto 3.9 x10*3/uL (2.0-8.3); Neutrophils Percent Auto 52.8 % (45-73); Platelet Count 192 X10*3/uL (160-400); Red Blood Count 4.36 X10*6/uL (4.60-5.80); Red Cell Distribution Width 13.7 % (11.0-16.0); White Blood Count 7.4 X10*3/uL (4.8-10.8)
[2021-09-04 13:02] LABS: Prothrombin Time 11.5 SEC (10.0-13.1)
[2021-09-04 13:05] LABS: Partial Thromboplastin Time 44.3 SEC (24.1-38.0)
[2021-09-04] MEDS: Lactated Ringers 1,000 ML 100 ML IVCONT (13:08)
[2021-09-04 15:14] LABS: Bone Marrow SEE SEPARATE REPORT
== END 2021-09-04 16:41 | disposition home or self-care (01) ==
PROVIDERS: Internal Medicine Medical Oncology; Radiology Diagnostic Radiology; PCP Internal Medicine; Visit Provider Radiology Diagnostic Radiology
PROC: (CPT 38221; principal; 2021-09-04 13:30)
DX: R74.8 Abnormal levels of other serum enzymes (principal); M89.9 Disorder of bone, unspecified; F32.A Depression, unspecified; F11.20 Opioid dependence, uncomplicated; Z87.828 Personal history of other (healed) physical injury and trauma; Z79.899 Other long term (current) drug therapy; F17.210 Nicotine dependence, cigarettes, uncomplicated; Z98.890 Other specified postprocedural states; Z88.0 Allergy status to penicillin; Z88.8 Allergy status to other drugs, medicaments and biological substances
CPT/HCPCS: 36415; 38221; 38222; 85025; 85097; 85610; 85730; 88184; 88185; 88237; 88264; 88300; 88305; 88311; 88313; 88341; 88342; J1642; J2250; J3010

== ENCOUNTER 2021-09-24 13:25 | Outpatient (REF) | payer MEDICAID, SELFPAY ==
[2021-09-24 13:39] LABS: MANUAL DIFF FLAG NO
[2021-09-24 14:16] LABS: Basophils Percent Auto 0.3 % (0-2); Eosinophils Absolute Auto 0.5 X10*3/uL (0.0-0.4); Eosinophils Percent Auto 6.2 % (0-4); Hematocrit 38.6 % (42.0-52.0); Hemoglobin 13.3 g/dl (14.0-18.0); Imm Gran Abs Auto 0.05 X10*3/uL (0.00-0.03); Imm Gran Pct Auto 0.7 % (0.0-0.4); Lymphocytes Absolute Auto 2.2 X10*3/uL (1.2-4.9); Lymphocytes Percent Auto 30.7 % (20-40); Mean Corpuscular HGB Conc 34.5 g/dl (31.0-36.0); Mean Corpuscular Hemoglobin 30.2 pg (27.0-33.0); Mean Corpuscular Volume 87.7 fL (80.0-98.0); Mean Platelet Volume 10.6 fL (9.4-12.4); Monocytes Absolute Auto 0.7 X10*3/uL (0.1-1.2); Neutrophils Absolute Auto 3.9 x10*3/uL (2.0-8.3); Neutrophils Percent Auto 53.1 % (45-73); Platelet Count 174 X10*3/uL (160-400); Red Cell Distribution Width 13.6 % (11.0-16.0); White Blood Count 7.3 X10*3/uL (4.8-10.8)
[2021-09-24 14:51] LABS: Anion Gap 13 (12-20); Blood Urea Nitrogen 18 mg/dL (9-16); Calcium 8.6 mg/dL (8.4-10.2); Carbon Dioxide 24 mmol/L (22-29); Chloride 106 mmol/L (96-108); Cholesterol 144 mg/dL; Estimated Glomerular Filt Rate > 60; Glucose Fasting 77 mg/dL (60-99); HDL Cholesterol 28 mg/dL; LDL Cholesterol Calculated 68 mg/dl; Potassium 4.1 mmol/L (3.3-5.1); Sodium 139 mmol/L (135-145); Triglycerides 240 mg/dL
== END 2021-09-24 13:26 | disposition home or self-care (01) ==
LOC: HO.LAB 13:25
PROVIDERS: PCP Internal Medicine; Visit Provider Nurse Practitioner Psychiatric/Mental Health
DX: F25.1 Schizoaffective disorder, depressive type (principal); Z79.899 Other long term (current) drug therapy
CPT/HCPCS: 36415; 80048; 80061; 85007; 85025; 85027

== ENCOUNTER 2022-02-06 16:19 | Outpatient (REF) | payer MEDICAID, SELFPAY ==
--- NOTE | ~2022-02-06 | CT_ITS ---
EXAMINATION: CT HEAD WITHOUT CONTRAST CLINICAL INFORMATION: Syncope. COMPARISON: None. TECHNIQUE: Contiguous axial imaging was performed from the skullbase to vertex without intravenous administration of contrast. This CT examination was performed using dose optimization techniques as appropriate, variously including the following: *Automated exposure control *Adjustment of mA and/or kV according to patient size (this includes techniques or standardized protocols for targeted exams where dose is matched to indication/reason for exam; i.e. extremities or head) *Use of iterative reconstruction technique DLP: 926 mGy-cm. FINDINGS: There is no evidence of acute intracranial hemorrhage or territorial infarction. No abnormal mass effect or midline shift is seen. Torres to white matter differentiation is well preserved. No extra-axial fluid collections are identified. The ventricles are normal in size. There is no abnormal attenuation within the brain parenchyma. The osseous structures and soft tissues are normal. The mastoid air cells and visualized portions of the paranasal sinuses are well aerated. CT/CT head/brain wo IV con IMPRESSION: No acute intracranial pathology.
== END 2022-02-06 16:20 | disposition home or self-care (01) ==
LOC: HO.CT 16:19
PROVIDERS: PCP Internal Medicine; Visit Provider Psychiatry & Neurology Neurology
DX: R55 Syncope and collapse (principal)
CPT/HCPCS: 70450

== ENCOUNTER → 2022-04-25 09:40 | Outpatient (REF) | payer MEDICAID, SELFPAY ==
--- NOTE | 2022-04-25 09:44 | CA_ITS ---
Transthoracic Echocardiogram Patient (Last, First, Middle): Vadim Colmenares, Gender: Male Date of : 1975 Age: 47 Procedure Date: 04/25/2022 Procedure Type: Transthoracic Echocardiogram Location: OP Height: 175.26 cm Weight: 102.06 kg BSA: 2.17 m2 Heart Rate: bpm BP: 138 / 78 mmHg Insurance Salesperson: TO Referring MD: Lorraine Morales MD Symptoms: R55 SYNCOPE Study Quality: Fair/Contrast ECG Rhythm: Sinus Conclusions: - The left ventricular systolic function is normal. The calculated ejection fraction is 68% by biplane method. - No obvious valvular pathology seen on this study. Findings Procedure Information Contrast agent, definity, is being given per protocol without apparent complications. Left Ventricle Normal left ventricular cavity size. There is normal left ventricular wall thickness. The left ventricular systolic function is normal. The calculated ejection fraction is 68% by biplane method. There is no evidence of regional wall motion abnormalities. Diastolic function is normal for age. LV peak GLS -19.8%. Right Ventricle Normal right ventricular cavity size and systolic function. Atria Both atria are normal in size. Aortic Valve There is a normal trileaflet aortic valve. There is no aortic valve stenosis. There is no aortic valve regurgitation. Mitral Valve The mitral valve appears normal. There is no mitral valve regurgitation. There is no mitral valve stenosis. Pulmonic Valve The pulmonic valve is likely normal. Tricuspid Valve Normal tricuspid valve structure. There is trace tricuspid valve regurgitation. There is no evidence of pulmonary hypertension. Great Vessels The asc aorta is normal in size. Venous The inferior vena cava was not well visualized. The inferior vena cava is normal in size. Pericardium/Pleural There is no evidence of pericardial effusion. Prior Study Comparison No significant change compared to prior study dated: 06/20/2021. Recommendations, Care & Conclusions No obvious valvular pathology seen on this study. Measurements 2D Linear Measurements IVSd: 0.98 0.6-0.9/0.6-1.0 cm LVIDd: 4.21 3.9-5.3/4.2-5.9 cm LVIDd Index: 1.94 2.4-3.2/2.2-3.1 cm/m2 LVIDs: 2.72 2.0-3.6 cm LVPWd: 0.88 0.7-1.1 cm LA Diam: 3.60 2.7-3.8/3.0-4.0 cm LAIDs Index: 1.66 1.5-2.3 cm/m2 LV Mass: 155.34 67-162/88-224 g LV Mass Index: 71.58 43-95/49-115 g/m2 LVOT Diam: 2.40 3.0+(-)1.3 cm 2D Systolic Function EF 4C: 65.80 >55% EF 2C: 67.80 >55% EF BiP: 67.50 >55% Mitral Valve MV Pk E: 0.81 MV PK A: 0.48 MV Decel Time: 247.00 E/A: 1.70 E'Lateral: 13.30 E'Medial: 12.00 E/E' Med: 6.80 E/E' Lat: 6.10 PHT: 72.00 MVA PHT: 3.06 Decel [place]: 3.28 Aortic Valve AoV Pk G[place]: 1.62 AoV Mn [place]: 1.00 AoV VTI: 0.29 AoV Pk Grad: 10.00 Aov Mn Grad: 5.00 SAMIA Cont.VTI: 3.90 LVOT LVOT Pk [place]: 1.34 LVOT Mn [place]: 0.90 LVOT VTI: 0.25 LVOT Pk Grad: 7.00 LVOT Mn Grad: 4.00 LVOT Diam: 2.40 LVOT Area: 4.52 Diastolic Function MV Pk E: 0.81 MV Pk A: 0.48 E/A: 1.70 E'Medial: 12.00 E/E' Med: 6.80 E' Laterial: 13.30 E/E' Lat: 6.10 Right Ventricle TAPSE (mm): 23.50 TVS' G[place]: 13.60 Tricuspid Valve TR Pk G[place]: 2.25 TR Pk Grad: 20.00 RA Press: 3.00 RVSP: 23.00 Great Vessels Aorta Sinus of Valsalva: 3.41 2.0-3.5 cm Ao Asc: 3.00 2.1-3.4 cm Updated in Other Vendor System with Status of Final Joey Zaidi MD electronically signed on 04/26/2022 1:50:40 PM with status of Final
--- NOTE | 2022-04-25 09:45 | HM_ITS ---
Conclusion: 1. Patient was monitored for total period of 1 day and 23 hours 2. Baseline was normal sinus rhythm with average heart of 68 beats per minute 3. No significant pauses or bradycardia noted 4. Occasional PACs with total burden of 0.11% with 1 episode of SVT, 5 beats at 122 beats per minute 5. No patient reported symptoms MTDD
== END ==
LOC: HO.CARD 09:40
PROVIDERS: PCP Internal Medicine; Visit Provider Psychiatry & Neurology Neurology
DX: R55 Syncope and collapse (principal)
CPT/HCPCS: 93225; 93306; 93356; Q9957

== ENCOUNTER → 2022-08-25 10:53 | Outpatient (REF) | payer MEDICAID, SELFPAY ==
--- NOTE | ~2022-08-25 | NM_ITS ---
EXAMINATION: NM BONE SCAN OF THE WHOLE BODY CLINICAL INFORMATION: Abnormal prior bone scan, follow-up. Also elevated alkaline phosphatase. Patient states bone pain all over. COMPARISON: The prior bone scan performed at [facility] dated 03/05/2021 is available for comparison. CT of the head dated 02/06/2022 is also available for comparison. No recent radiographs are available for comparison. TECHNIQUE: Multiple gamma scintillation camera images of the whole body were performed 3 hours following the intravenous administration of 36 mCi Tc-99m MDP. FINDINGS: In all the visualized bones there is markedly increased activity compared to the background soft tissue activity. A long bones this is most prominent in the cortical bone. In the head, no discrete focal abnormalities are present. In the thoracic cage and upper extremities, diffusely increased contrast as noted above in the bones and soft tissues. In the humeri this has a subtle cortical prominence that is more pronounced in the distal half of the humeral shafts bilaterally. There is also more prominent activity in the periarticular regions diffusely and this is bilaterally symmetrical. In the spine, diffusely increased contrast with a very subtle minimal thoracolumbar scoliosis with lumbar convexity to the left. Very mild focus of more prominently increased activity is present in the left posterior elements at L5. In the pelvis, no focal abnormalities are present. In the lower extremities, diffusely increased activity which is most prominent in the cortices in the periarticular bones of the knees, ankles and feet is noted. The findings are bilaterally symmetrical. No other definite bony abnormalities are noted. The urinary bladder and very faint visualization of both kidneys are noted. Compared to the prior bone scan dated 03/05/2021, there has not been a significant change. The appearance is almost identical except for some increased activity on the current study in the first metatarsophalangeal joints in the feet bilaterally, more prominently on the right. NM/NM bone scan whole body IMPRESSION: These findings are most consistent with metabolic bone disease. This differential would include primary or secondary hyperparathyroidism, including renal osteodystrophy. Hyperparathyroidism Would be the most likely explanation for these findings which appear stable for at least 18 months. Diffuse marrow disease would be an additional possibility. A bone marrow biopsy performed on 07/16/2021 did not obtain adequate marrow samples, but the report made comment that the trabecular bone appeared thickened suggesting hyperparathyroidism and that the patient had an elevated PTH level at that time. Correlation with current PTH and calcium levels are strongly recommended for initial follow-up as well as evaluation of renal function. This scan pattern is nonspecific and can also be seen in hyperthyroidism, and the latter should also be ruled out.
== END ==
LOC: HO.NUCMED 10:53
PROVIDERS: PCP Internal Medicine; Visit Provider Internal Medicine Medical Oncology
DX: R74.8 Abnormal levels of other serum enzymes (principal)
CPT/HCPCS: 78306; A9503

== ENCOUNTER 2022-12-04 11:07 | Outpatient (REF) | payer MEDICAID, SELFPAY ==
[2022-12-04 14:16] LABS: MANUAL DIFF FLAG NO
[2022-12-04 14:28] LABS: Basophils Percent Auto 0.7 % (0-2); Eosinophils Absolute Auto 0.1 X10*3/uL (0.0-0.4); Eosinophils Percent Auto 0.9 % (0-4); Hematocrit 42.4 % (42.0-52.0); Hemoglobin 14.5 g/dl (14.0-18.0); Imm Gran Abs Auto 0.01 X10*3/uL (0.00-0.03); Imm Gran Pct Auto 0.2 % (0.0-0.4); Lymphocytes Absolute Auto 1.6 X10*3/uL (1.2-4.9); Lymphocytes Percent Auto 29.1 % (20-40); Mean Corpuscular HGB Conc 34.2 g/dl (31.0-36.0); Mean Corpuscular Hemoglobin 31.7 pg (27.0-33.0); Mean Corpuscular Volume 92.8 fL (80.0-98.0); Mean Platelet Volume 10.3 fL (9.4-12.4); Monocytes Absolute Auto 0.4 X10*3/uL (0.1-1.2); Monocytes Percent Auto 6.7 % (2-11); Neutrophils Absolute Auto 3.5 x10*3/uL (2.0-8.3); Neutrophils Percent Auto 62.4 % (45-73); Platelet Count 225 X10*3/uL (160-400); Red Blood Count 4.57 X10*6/uL (4.60-5.80); Red Cell Distribution Width 13.5 % (11.0-16.0); White Blood Count 5.6 X10*3/uL (4.8-10.8)
[2022-12-04 14:57] LABS: TSH reflex Free T4 0.61 uIU/mL (0.32-4.0)
[2022-12-04 15:05] LABS: Anion Gap 14 (12-20)
[2022-12-04 15:10] LABS: Alanine Aminotransferase 97 U/L (0-40); Albumin Level 4.4 g/dL (3.5-5.0); Alkaline Phosphatase 286 U/L (39-117); Aspartate Amino Transferase 98 U/L (5-37); Bilirubin Direct 0.4 mg/dL (0.0-0.5); Bilirubin Total 1.3 mg/dL (0.0-1.0); Blood Urea Nitrogen 11 mg/dL (9-16); Calcium 9.7 mg/dL (8.4-10.2); Carbon Dioxide 23 mmol/L (22-29); Chloride 103 mmol/L (96-108); Cholesterol 195 mg/dL (<200); Estimated Glomerular Filt Rate > 60; Glucose Fasting 101 mg/dL (60-99); HDL Cholesterol 45 mg/dL (>40); LDL Cholesterol Calculated 131 mg/dL (<100); Sodium 136 mmol/L (135-145); Total Protein 7.8 g/dL (6.5-8.0); Triglycerides 96 mg/dL (<150)
[2022-12-05 07:26] LABS: ~HepC Num1 0.24 S/CO (0.00-0.79); ~Hepatitis C Antibody Nonreactive (Nonreactive)
[2022-12-07 16:12] LABS: HIV RNA PCR Qn Copies Not Detected Copies/mL; HIV RNA PCR Qn Log Copies Not Detected Log cps/mL
== END 2022-12-04 11:08 | disposition home or self-care (01) ==
LOC: HO.CHCLDS 11:07
PROVIDERS: Visit Provider Internal Medicine
DX: E78.2 Mixed hyperlipidemia (principal)
CPT/HCPCS: 36415; 80048; 80061; 80076; 84443; 85025; 86803; 87536; 87900

== ENCOUNTER 2022-12-15 09:08 | Outpatient (REF) | payer MEDICAID, SELFPAY ==
[2022-12-15 09:24] LABS: MANUAL DIFF FLAG NO
[2022-12-15 10:28] LABS: Basophils Percent Auto 0.4 % (0-2); Eosinophils Absolute Auto 0.1 X10*3/uL (0.0-0.4); Eosinophils Percent Auto 1.7 % (0-4); Hematocrit 39.6 % (42.0-52.0); Hemoglobin 13.7 g/dl (14.0-18.0); Imm Gran Abs Auto 0.02 X10*3/uL (0.00-0.03); Imm Gran Pct Auto 0.4 % (0.0-0.4); Lymphocytes Absolute Auto 1.8 X10*3/uL (1.2-4.9); Lymphocytes Percent Auto 33.1 % (20-40); Mean Corpuscular HGB Conc 34.6 g/dl (31.0-36.0); Mean Corpuscular Hemoglobin 31.5 pg (27.0-33.0); Monocytes Absolute Auto 0.5 X10*3/uL (0.1-1.2); Monocytes Percent Auto 10.2 % (2-11); Neutrophils Absolute Auto 2.9 x10*3/uL (2.0-8.3); Neutrophils Percent Auto 54.2 % (45-73); Platelet Count 191 X10*3/uL (160-400); Red Blood Count 4.35 X10*6/uL (4.60-5.80); Red Cell Distribution Width 13.2 % (11.0-16.0); White Blood Count 5.3 X10*3/uL (4.8-10.8)
[2022-12-15 11:18] LABS: Alanine Aminotransferase 19 U/L (0-40); Albumin Level 3.8 g/dL (3.5-5.0); Alkaline Phosphatase 216 U/L (39-117); Anion Gap 13 (12-20); Aspartate Amino Transferase 18 U/L (5-37); Bilirubin Total 0.6 mg/dL (0.0-1.0); Blood Urea Nitrogen 10 mg/dL (9-16); Calcium 9.3 mg/dL (8.4-10.2); Carbon Dioxide 24 mmol/L (22-29); Chloride 106 mmol/L (96-108); Cholesterol 154 mg/dL (<200); Estimated Glomerular Filt Rate > 60; Glucose Random 88 mg/dL (60-115); HDL Cholesterol 27 mg/dL (>40); LDL Cholesterol Calculated 91 mg/dL (<100); Potassium 4.2 mmol/L (3.3-5.1); Sodium 139 mmol/L (135-145); Triglycerides 183 mg/dL (<150)
== END 2022-12-15 09:09 | disposition home or self-care (01) ==
LOC: HO.LAB 09:08
PROVIDERS: PCP Internal Medicine; Visit Provider Nurse Practitioner Psychiatric/Mental Health
DX: F33.3 Major depressive disorder, recurrent, severe with psychotic symptoms (principal); F41.9 Anxiety disorder, unspecified; Z79.899 Other long term (current) drug therapy
CPT/HCPCS: 36415; 80053; 80061; 85025

== ENCOUNTER 2022-12-18 10:04 | Outpatient (REF) | payer MEDICAID, SELFPAY | END 2022-12-18 10:05 | disposition home or self-care (01) | LOC: HO.LAB 10:04 | PROVIDERS: PCP Internal Medicine; Visit Provider Nurse Practitioner Psychiatric/Mental Health | DX: F33.3 Major depressive disorder, recurrent, severe with psychotic symptoms (principal); F41.9 Anxiety disorder, unspecified; Z79.899 Other long term (current) drug therapy | CPT/HCPCS: 36415; 84146 ==

== ENCOUNTER 2023-02-05 09:28 | Outpatient (REF) | payer MEDICAID, SELFPAY ==
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
== END 2023-02-05 09:29 | disposition home or self-care (01) ==
LOC: HO.US 09:28
PROVIDERS: PCP Internal Medicine; Visit Provider Internal Medicine
DX: R94.5 Abnormal results of liver function studies (principal); R79.89 Other specified abnormal findings of blood chemistry
CPT/HCPCS: 76700

== ENCOUNTER 2023-04-30 11:28 | Outpatient (REF) | payer MEDICAID, SELFPAY ==
[2023-04-30 15:21] LABS: Alanine Aminotransferase 27 U/L (0-40); Albumin Level 4.4 g/dL (3.5-5.0); Alkaline Phosphatase 208 U/L (39-117); Anion Gap 18 (12-20); Aspartate Amino Transferase 25 U/L (5-37); Bilirubin Total 0.9 mg/dL (0.0-1.0); Blood Urea Nitrogen 12 mg/dL (9-16); Calcium 9.2 mg/dL (8.4-10.2); Carbon Dioxide 19 mmol/L (22-29); Chloride 108 mmol/L (96-108); Cholesterol 189 mg/dL (<200); Estimated Glomerular Filt Rate > 60; Glucose Random 90 mg/dL (60-115); HDL Cholesterol 33 mg/dL (>40); LDL Cholesterol Calculated 92 mg/dL (<100); Potassium 3.9 mmol/L (3.3-5.1); Sodium 141 mmol/L (135-145); Total Protein 7.6 g/dL (6.5-8.0); Triglycerides 324 mg/dL (<150)
== END 2023-04-30 11:29 | disposition home or self-care (01) ==
LOC: HO.CHCLDS 11:28
PROVIDERS: Visit Provider Internal Medicine
DX: E78.2 Mixed hyperlipidemia (principal)
CPT/HCPCS: 36415; 80053; 80061

== ENCOUNTER 2023-07-01 09:39 | Outpatient (REF) | payer MEDICAID, SELFPAY ==
[2023-07-01 11:15] LABS: Parathyroid Hormone Intact 106.9 pg/mL (8.7-77.1)
[2023-07-01 11:28] LABS: Albumin Level 4.4 g/dL (3.5-5.0); Calcium 9.6 mg/dL (8.4-10.2); Vitamin D 25-OH Total 17.1 ng/mL (>30)
== END 2023-07-01 09:40 | disposition home or self-care (01) ==
LOC: HO.LAB 09:39
PROVIDERS: PCP Internal Medicine; Visit Provider Internal Medicine Endocrinology, Diabetes & Metabolism
DX: R74.8 Abnormal levels of other serum enzymes (principal)
CPT/HCPCS: 36415; 82040; 82306; 82310; 83970

== ENCOUNTER 2023-12-02 13:56 | Outpatient (AMB) | payer MEDICAID, SELFPAY ==
[2023-12-02 13:58] VITALS: BP 150/90; PULSE 75; BMI 31.9
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
== END 2023-12-02 14:29 | disposition home or self-care (01) ==
PROVIDERS: PCP Internal Medicine; Visit Provider Internal Medicine Endocrinology, Diabetes & Metabolism
DX: E21.3 Hyperparathyroidism, unspecified (principal)
CPT/HCPCS: 99213

== ENCOUNTER → 2023-12-02 13:56 | Outpatient (BNVA) | payer MEDICAID, SELFPAY | PROVIDERS: PCP Internal Medicine; Visit Provider Internal Medicine Endocrinology, Diabetes & Metabolism | DX: E21.3 Hyperparathyroidism, unspecified (principal) | CPT/HCPCS: 99212 ==

== ENCOUNTER → 2024-03-22 13:56 | Outpatient (BNVA) | payer MEDICAID, SELFPAY | PROVIDERS: PCP Internal Medicine; Visit Provider Internal Medicine Endocrinology, Diabetes & Metabolism | DX: E21.3 Hyperparathyroidism, unspecified (principal) | CPT/HCPCS: 99212 ==

== ENCOUNTER 2024-06-14 08:25 | Outpatient (REF) | payer MEDICAID, SELFPAY ==
[2024-06-14 08:43] LABS: MANUAL DIFF FLAG NO
--- OUTSIDE RECORDS SUMMARY | 2024-06-14 08:44 | XMS_ITS | Encounter Summary ---
Author Organization [employer] Address [address] [place] [address] 7 [place] [address] Care Team Providers Care Hair Boiler Name Role Phone Pablo Hill MD Primary Care Prov ider Encounter Details Date Type Department Care Team ([facility] st Contact Info) Description 12/18/2022 Orders Only [facility] MED & PEDS [address] [place], [place] [phone] Pablo Hill MD [address] [place] [address] Social History Tobacco Use Types Packs/Day Years Used Date Smoking Tobacco: Every Day Cigarettes Depression Answer Date Recorded Patient Health Questionnaire-9 Score 2 01/27/2022 Housing Stability Answer Date Recorded What is your housing situation today? I have cande doherty 12/04/[address] you li ve. Do you have problems with any of the following? None of the above 12/04/2022 Food Insecurity Answer Date Recorded Within the past 12 months, y ou worried that your food would run out before you got money to buy more: Never True 12/04/2022 Within the past 12 months,th e food you bought just didn't last and you didn't have enough money to get more: Never True Transportation Answer Date Recorded In the past 12 months, has l ack of transportation kept you from medical appts, meetings, work or from getting things needed for daily living? No 12/04/2022 Utilities Answer Date Recorded In the past 12 months, has t he electric, gas, oil or water [employer] threatened to shut off services in your home? No 12/04/2022 Depression Answer Date Recorded Patient Health Questionnaire-2 Score 2 01/27/2022 Sex and Gender Information Value Date Recorded Sex Assigned at Male 12/16/2021 10:24 AM EDT Legal Sex Male 10:24 AM EDT Gender Identity Male 12/16/2021 10:24 AM EDT Sexual Orientation Choose not to disclose 2021 10:24 AM EDT documented as of this encounter Plan of Treatment Upcoming Encounters Date Type Department Care Team (Late st Contact Info) Description 07/05/2024 9:30 AM EDT Office Visit [facility] MED & PEDS [address] [place], [place] [phone] Pablo Hill MD [address] [place] [address] documented as of this encounter Procedures Procedure Name Priority Date/Time Associated Diagnosis Comments VITAMIN D,25-OH,TOTAL,IA Routine 07/01/2023 9:59 AM EDT PTH, INTACT WITHOUT CALCIUM Routine 07/01/2023 9:59 AM EDT CALCIUM Routine 07/01/2023 9:59 AM EDT ALBUMIN Routine 07/01/2023 9:59 AM EDT documented in this encounter Results * (ABNORMAL) Vitamin D, 25-Hydroxy, Total, Immunoassay (07/01/2023 9:59 AM EDT) Vitamin D 25-OH Total 17.1(L) >30 ng/mL [facility] Comment:Health Based Referen ce Values*< 20 ng/mL Dmuerwvkd47-40 ng/mL Insufficient> 30 ng/mL Sufficient*Skyler YARBROUGH. N Engl J Med. 2007;357:266-280Care must be taken in interpreting Vitamin D results fromdifferent laboratories and methodologies. Published datademonstrated that results from patients undergoinghemodialysis may show a negative bias when tested withvarious automated 25-OH vitamin D assays when compared toLC-MS/MS.When testing samples from patients whose predominant form ofVitamin D is Vitamin D2, such as patients receiving VitaminD2 supplementation, results that are subtherapeutic shouldbe confirmed with another method such as LC-MS/MS. 07/01/2023 9:59 AM EDT 07/01/2023 9:59 AM EDT Generic External Data Provider LAB BLOOD ORDERAB LES Final Result Performing Organization Address [facility] Co de Phone Number [facility] [address] [place] [phone] * Albumin (07/01/2023 9:59 AM EDT) Albumin Level 4.4 3.5 - 5.0 g/dL [facility] 07/01/2023 9:59 AM EDT 07/01/2023 9:59 AM EDT Generic External Data Provider LAB BLOOD ORDERAB LES Final Result Performing Organization Address [facility] Phone Number [facility] [address] [place] [phone] * Calcium (07/01/2023 9:59 AM EDT) Calcium 9.6 8.4 - 10.2 mg/dL [facility] 07/01/2023 9:59 AM EDT 07/01/2023 9:59 AM EDT Generic External Data Provider LAB BLOOD ORDERAB LES Final Result Performing Organization Address [facility] Phone Number [facility] [address] [place] [phone] * (ABNORMAL) PTH, Intact Without Calcium (07/01/2023 9:59 AM EDT) Parathyroid Hormone, Intact 106.9(H) 8.7 - 77.1 pg/mL [facility] 07/01/2023 9:59 AM EDT 07/01/2023 9:59 AM EDT us Generic External Data Provider LAB BLOOD ORDERAB LES Final Result [facility] [address] [place] [phone] [phone] documented in this encounter Visit Diagnoses Not on filedocumented in this encounter Additional Health Concerns Assessment Noted Time PHQ-9 Depression Total Score: 2 01/28/20 22 1:14 PM EST documented as of this encounter Care Teams Hair Boiler Relationship Specialty Start Date End Date Pablo Hill MD [address] [place] [phone] PCP - General Internal Medicine 05/25/20 Tamiko Haddad Chicle Grinder FeederFinal Block Press Operator 07/09/23 documented as of this encounter
--- OUTSIDE RECORDS SUMMARY | 2024-06-14 08:44 | XMS_ITS | Clinical Summary ---
Author Organization [employer] Address [address] [place] [address] 7t [place] [address] Care Team Providers Care Windows Software Engineer Name Role Phone Pablo Hill MD Primary Care Prov ider Allergies Active Allergy Reactions Criticality Noted Date Comments Codeine 05/17/2014 Penicillin G 05/17/2014 Medications albuterol 108 (90 Base) MCG/ACT inhaler Inhale 2 puffs every 4 (four) hours. 2 Active cloNIDine (Catapres) 0.2 MG tablet Take 1 tablet by mouth every 12 (twelve) hours. Active escitalopram (Lexapro) 10 MG tablet Take 1 tablet by mouth at bed time. Active hydrOXYzine pamoate (Vistaril) 25 MG capsule Take 1 capsule by mouth at bed time. Active methadone (Dolophine) 10 MG/5ML solution Take 37 mL by mouth every 12 (twelve) hours. 1 Active nicotine (Nicoderm, Step 2) 14 MG/24HR patch apply 1 patch by transdermal route every day and wear for 16-24 hours. 2 Active nicotine (Nicoderm, Step 1) 21 MG/24HR patch Place 1 patch on the skin at bed time. 2 11/06/19 28 Active nicotine (Nicoderm, Step 3) 7 MG/24HR patch apply 1 patch by transdermal route every day and wear for 16-24 hours. 2 Active nicotine polacrilex (Commit) 4 MG lozenge take 1 lozenge by oral route every 1-2 hours dissolved slowly in the mouth for 6 weeks, then 1 lozenge every 2-4 hours for 3 weeks, then 1 lozenge every 4-8 hours for 2 weeks. 2 Active OLANZapine (ZyPREXA) 5 MG tablet Take 1 tablet by mouth every 12 (twelve) hours. Active risperiDONE (RisperDAL) 1 MG tablet Take 1 tablet by mouth. Active triamcinolone (Kenalog) 0.1 % creamIndications :Eczema, unspecified type Apply topically if needed in the morning and at bedtime (pain and swelling). 30 g 2 2 Active atorvastatin (Lipitor) 40 MG tablet TAKE 1 TABLET(40 MG) BY MOUTH IN THE MORNING 90 tablet 1 5 Active Active Problems Problem Noted Date Diagnosed Date Class 1 obesity 11/13/2023 Schizophrenia, paranoid, chronic 11/13/2023 Hallucination, visual 11/13/2023 Colon cancer screening 04/28/2023 Assessment & Plan (04/28/2023 1:55 PM EDT): Patient refers has scheduled visit on May, will follow up reccomendations Elevated alkaline phosphatase level 09/24/2022 Assessment & Plan (12/17/2022 3:50 PM EDT): Patient lost endocrinology follow up with Dr bourgeois, will place referral for hyperparathyroidism eval Assessment & Plan (09/24/2022 2:01 PM EDT): Followed by hematology/endocrinology, will follow up reccomendations Mixed hyperlipidemia 05/12/2022 Assessment & Plan (04/28/2023 1:55 PM EDT): On atorvastatin 40mg, new labs will be ordered for guidance of therapy Assessment & Plan (12/17/2022 3:47 PM EDT): On atorvastatin, ultrasound was ordered to evaluate for POWELL, reinforced importance of exercise and healthy diet Assessment & Plan (09/24/2022 2:02 PM EDT): On atorvastatin, will order new labs for guidance of therapy Assessment & Plan (05/12/2022 1:55 PM EDT): Patient on atorvastatin 40mg daily, no side effects reported, will place order for new labs for guidance of therapy Screening for colon cancer 05/12/2022 Assessment & Plan (05/12/2022 1:56 PM EDT): Will refer to GI for screening colonoscopy Depressive disorder 05/17/2014 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 Encounters Date Type Department Care Team Description 04/29/2024 Population Health Risk Score [facility] [address] [phone] Provider, Population Health Generic 04/22/2024 Refill [facility] MED & PEDS [address] [place] [address] Pablo Hill MD 04/14/2024 Telephone [facility] MED & PEDS [address] [place] [address] Pablo Hill MD from Last 3 Months Immunizations Name Administration Dates Next Due Influenza injectable quadrivalent preservative f ree 12/11/2020 Tdap 06/18/2021 Social History Tobacco Use Types Packs/Day Years Used Date Smoking Tobacco: Every Day Cigarettes Tobacco Cessation:Ready to Q uit: Not Asked; Counseling Given: Not Answered Depression Answer Date Recorded Patient Health Questionnaire-9 Score 6 04/28/2023 Patient Health Questionnaire-9 Score 6 04/28/2023 Last PHQ-9: Questionnaire Data Not on file 0 04/28/2023 Housing Stability Answer Date Recorded What is your housing situation today? I have cande doherty 04/28/[address] you li ve. Do you have problems with any of the following? None of the above 04/28/2023 Food Insecurity Answer Date Recorded Within the past 12 months, y ou worried that your food would run out before you got money to buy more: Never True 04/28/2023 Within the past 12 months,th e food you bought just didn't last and you didn't have enough money to get more: Never True 01/2024 Transportation Answer Date Recorded In the past 12 months, has l ack of transportation kept you from medical appts, meetings, work or from getting things needed for daily living? No 04/28/2023 Utilities Answer Date Recorded In the past 12 months, has t he electric, gas, oil or water company threatened to shut off services in your home? No 04/28/2023 Depression Answer Date Recorded Patient Health Questionnaire-2 Score 6 04/28/2023 Sex and Gender Information Value Date Recorded Sex Assigned at Male 12/16/2021 10:24 AM EDT Legal Sex Male 10:24 AM EDT Gender Identity Male 12/16/2021 10:24 AM EDT Sexual Orientation Choose not to disclose 2021 10:24 AM EDT Last Filed Vital Signs Vital Sign Reading Time Taken Comments Blood Pressure 142/87 04/28/2023 1:28 PM EDT Pulse 88 04/28/2023 1:28 PM EDT Temperature 37.1 ??C (98.7 ??F) 04/28/2023 1:28 PM ED T Respiratory Rate 20 04/28/2023 1:28 PM EDT Oxygen Saturation - - Inhaled Oxygen Concentration - - Weight 90.3 kg (199 lb) 04/28/2023 1:28 PM EDT Height 172.7 cm (5' 8 ) 04/28/2023 1:28 PM EDT Body Mass Index 30.26 04/28/2023 1:28 PM EDT Plan of Treatment Upcoming Encounters Date Type Department Care Team (Late st Contact Info) Description 07/05/2024 9:30 AM EDT Office Visit [facility] CHC MED & PEDS [address] [place] [address] Pablo Hill MD [address] [place] [address] Health Maintenance Due Date Last Done Comments CT Colonography 1977 Colonoscopy 1977 Colorectal Cancer Screening 1977 FIT DNA/Cologuard 1977 FIT 1977 FOBT 1977 Sigmoidoscopy 1977 Alcohol/Substance Use Screening 1989 Family Planning (PISQ) 01/14/1992 Hepatitis B Vaccines (1 of 3 - 19+ 3-dose series) 01/14/1996 Pneumococcal Vaccine: Pediatrics (0 to 5 Years) and At-Risk Patients (6 to 49) Years) (2 of 2 - PCV) 10/18/2016 10/19/2015 COVID-19 Vaccine (4 - season) 2023 01/11/2022, 01/18/2021, 07/10/2020 Influenza Vaccine (#1) 2023 12/11/2020 Depression Screening 04/27/2024 04/28/2023, 04/28/19 24 SDOH Screening 04/27/2024 04/28/2023 Tobacco Screening 11/12/2024 11/13/2023 Zoster Vaccines (1 of 2) 2027 Lipid Panel 04/29/2028 04/30/2023, 11/16, 09/24/2021, Additional history exists DTaP/Tdap/Td Vaccines (3 - Td or Tdap) 06/19/2031 06/18/2021, 10/02/2017 RSV Patients and Patients Aged 60 years or older (1 - 1-dose 75+ series) 01/14/2052 HIV Screening Completed 12/25/2020 Hepatitis C Screening Completed 12/04/2022, 021 HIB Vaccines Aged Out No longer eligi ble based on patient's age to complete this topic HPV Vaccines Aged Out No longer eligi ble based on patient's age to complete this topic Hepatitis A Vaccines Aged Out No long er eligible based on patient's age to complete this topic IPV Vaccines Aged Out No longer eligi ble based on patient's age to complete this topic Meningococcal Vaccine Aged Out No mannie ela eligible based on patient's age to complete this topic RSV under 20 months Aged Out No longe r eligible based on patient's age to complete this topic Rotavirus Vaccines Aged Out No longer eligible based on patient's age to complete this topic Procedures Procedure Name Priority Date/Time Associated Diagnosis Comments LIPID PANEL, STANDARD Routine 04/30/2023 11:30 AM EDT Mixed hyperlipidemia HEPATITIS C AB W/REFL TO HCV RNA, QN, PCR Routine 12/04/2022 11:11 AM EDT HIV 1/2 ANTIGEN/ANTIBODY, FOURTH GENERATION W/RFL Routine 12/25/2020 8:31 AM EST from Last 3 Months or Most Recently Relevant to Health Maintenance Results * (ABNORMAL) Lipid Panel, Standard (04/30/2023 11:30 AM EDT) Triglycerides 324(H) <150 mg/dL [facility] Comment:Desirable Triglyceri de: less than 150 mg/dLBorderline High Triglyceride 150-199 mg/dLHigh Triglyceride: 200-499 mg/dLVery High Triglyceride: greater than or equal to 5OO mg/dL Cholesterol 189 <200 mg/dL [facility] Comment:Desirable Cholestero l: less than 200 mg/dLBorderline High Cholesterol: 200-239 mg/dLHigh Cholesterol: greater than 239 mg/dL LDL Cholesterol Calculated 92 <100 mg/dL [facility] Comment:Desirable LDL: less than 100 mg/dLNear Optimal/Above Optimal LDL: 110- 129 mg/dLBorderline High LDL: 130-159 mg/dLHigh LDL: 160-189 mg/dLVery High LDL: greater than or equal to 190 mg/dL HDL Cholesterol 33(L) >40 mg/dL [facility] Comment:Desirable HDL: great er than 40 mg/dL Note: This HDL assay may give artificially low results in patients with liver disease. Blood Venous blood specimen / Unknown 04/30/2023 11:30 AM EDT 04/30/2023 2:14 PM EDT Pablo Su MD LAB BLOOD ORDERABL ES Final Result [facility] [address] [place] [phone] [phone] * Hepatitis C Antibody with Reflex to HCV, RNA, Quantitative, Real-Time PCR (12/04/2022 11:11 AM EDT) Hepatitis C Antibody Nonreactive Nonreactive [facility] Comment:Antibodies to HCV no t detected; does not exclude early acuteHCV infection. 12/04/2022 11:1 1 AM EDT 12/04/2022 2:10 PM EDT Pablo Su MD LAB BLOOD ORDERABL ES Final Result [facility] [address] [place] [address] [phone] * HIV 1/2 ANTIGEN/ANTIBODY,FOURTH GENERATION W/RFL (12/25/2020 8:31 AM EST) HIV-1/2 ANTIGEN AND ANTIBODIES, 4TH GENERATION W/ REFLEX NON-REACT [facility] NON-REACT [facility] Comment: HIV-1 antigen and HIV-1/HIV-2 antibodies were not detected. There is no laboratory evidence of HIV infection. ?? PLEASE NOTE: This information has been disclosed to you from records whose confidentiality may be protected by state law. ??If your state requires such protection, then the state law prohibits you from making any further disclosure of the information without the specific written consent of the person to whom it pertains, or as otherwise permitted by law. A general authorization for the release of medical or other information is NOT sufficient for this purpose. ? For additional information please refer to http://education.[employer].Ubiq Mobile/faq/PTM383 (This link is being provided for informational/ educational purposes only.) ? The performance of this assay has not been clinically validated in patients less than 2 years old. ?? 12/25/2020 8:31 AM EST us Pablo Su MD LAB BLOOD ORDERABL ES Final Result [facility] [address] from Last 3 Months or Most Recently Relevant to Health Maintenance Insurance [employer] [address] [place] [address] [facility] C3 Care Teams Windows Software Engineer Relationship Specialty Start Date End Date Pablo Hill MD [address] [place] [address] [place] [phone] PCP - General Internal Medicine 05/25/20 Tamiko Haddad Mixer Operator Vacuum Pan SaltFamily Engagement Specialist 07/09/23
--- OUTSIDE RECORDS SUMMARY | 2024-06-14 08:44 | XMS_ITS | Encounter Summary ---
Author Organization [employer] Address [address] [place] [address] 7 [place] [address] Care Team Providers Care Financial Market Dealer Name Role Phone Pablo Hill MD Primary Care Prov ider Encounter Details Date Type Department Care Team ([facility] st Contact Info) Description 11/13/2023 Orders Only [facility]S [address] [place], [place] [phone] Pablo Hill MD [address] [place] [address] Schizophrenia, paranoid, chronic (CMS/HCC) (Primary Dx); Hallucination, visual Social History Tobacco Use Types Packs/Day Years [...] Upcoming Encounters Date Type Department Care Team ([facility] st Contact Info) Description 07/05/2024 9:30 AM EDT Office Visit [facility] MED & PEDS [address] [place] [address] Pablo Hill MD [address] [place] [address] documented as of this encounter Visit Diagnoses Diagnosis Schizophrenia, paranoid, chronic (CMS/HCC)- Primary Paranoid schizophrenia, chronic condition Hallucination, visual documented in this encounter Additional Health Concerns Assessment Noted Time PHQ-9 Depression Total Score: 6 04/28/19 24 1:22 PM EDT documented as of this encounter Care Teams Financial Market Dealer Relationship Specialty Start Date End Date Pablo Hill MD [address] [place] [address] PCP - General Internal Medicine 05/25/20 Tamiko Haddad Cargo MateBarn Worker 07/09/23 documented as of this encounter
[2024-06-14 09:43] LABS: Basophils Percent Auto 0.2 % (0-2); Eosinophils Absolute Auto 0.2 X10*3/uL (0.0-0.4); Eosinophils Percent Auto 2.4 % (0-4); Hematocrit 37.5 % (42.0-52.0); Hemoglobin 13.7 g/dl (14.0-18.0); Imm Gran Abs Auto 0.03 X10*3/uL (0.00-0.03); Imm Gran Pct Auto 0.5 % (0.0-0.4); Lymphocytes Absolute Auto 2.6 X10*3/uL (1.2-4.9); Lymphocytes Percent Auto 41.1 % (20-40); Mean Corpuscular HGB Conc 36.5 g/dl (31.0-36.0); Mean Corpuscular Hemoglobin 31.9 pg (27.0-33.0); Mean Corpuscular Volume 87.2 fL (80.0-98.0); Mean Platelet Volume 10.2 fL (9.4-12.4); Monocytes Absolute Auto 0.5 X10*3/uL (0.1-1.2); Monocytes Percent Auto 7.8 % (2-11); Neutrophils Absolute Auto 3.1 x10*3/uL (2.0-8.3); Platelet Count 187 X10*3/uL (160-400); Red Cell Distribution Width 12.5 % (11.0-16.0); White Blood Count 6.4 X10*3/uL (4.8-10.8)
[2024-06-14 10:08] LABS: Alanine Aminotransferase 49 U/L (0-40); Albumin Level 3.9 g/dL (3.5-5.0); Alkaline Phosphatase 134 U/L (39-117); Anion Gap 13 (12-20); Aspartate Amino Transferase 27 U/L (5-37); Bilirubin Total 0.8 mg/dL (0.0-1.0); Blood Urea Nitrogen 10 mg/dL (9-16); Calcium 8.7 mg/dL (8.4-10.2); Carbon Dioxide 23 mmol/L (22-29); Chloride 108 mmol/L (96-108); Cholesterol 159 mg/dL (<200); Estimated Glomerular Filt Rate > 60; Glucose Fasting 94 mg/dL (60-99); HDL Cholesterol 28 mg/dL (>40); LDL Cholesterol Calculated 61 mg/dL (<100); Potassium 3.5 mmol/L (3.3-5.1); Sodium 140 mmol/L (135-145); Total Protein 6.7 g/dL (6.5-8.0); Triglycerides 353 mg/dL (<150)
[2024-06-15 10:39] LABS: Prolactin 46.9 ng/mL (2.0-18.0)
== END 2024-06-14 08:26 | disposition home or self-care (01) ==
LOC: HO.LAB 08:25
PROVIDERS: PCP Internal Medicine; Visit Provider Nurse Practitioner Psychiatric/Mental Health
DX: Z79.899 Other long term (current) drug therapy (principal)
CPT/HCPCS: 36415; 80053; 80061; 84146; 85025

== ENCOUNTER 2024-10-25 09:12 | Outpatient (REF) | payer MEDICAID, SELFPAY ==
--- OUTSIDE RECORDS SUMMARY | 2024-10-25 10:37 | XMS_ITS | Encounter Summary ---
Author Organization [employer] Address [address] [place] [address] 7 [place] [address] Care Team Providers Care Data Integration Developer Name Role Phone Pablo Hill MD Primary Care Prov ider Encounter Details Date Type Department Care Team ([facility] st Contact Info) Description 12/18/2022 Orders Only [facility] CH[facility] MED & PEDS [address] [place], [place] [phone] Pablo Hill MD [address] [place] [address] Social History Tobacco Use Types Packs/Day Years [...] Male 12/16/2021 10:24 AM EDT Sexual Orientation Straight 07/07/2024 3: 49 PM EDT documented as of this encounter Plan of Treatment Not on file documented as of this encounter Procedures Procedure Name Priority Date/Time Associated Diagnosis Comments VITAMIN D,25-OH,TOTAL,IA Routine 07/01/2023 9:59 AM EDT PTH, INTACT WITHOUT CALCIUM Routine 07/01/2023 9:59 AM EDT CALCIUM Routine 07/01/2023 9:59 AM EDT ALBUMIN Routine 07/01/2023 9:59 AM EDT documented in this encounter Results * (ABNORMAL) Vitamin D, 25-Hydroxy, Total, Immunoassay (07/01/2023 9:59 AM EDT) [facility] Signature Vitamin D 25-OH Total 17.1(L) >30 ng/mL [facility] Comment:Health Based Referen ce Values*< 20 ng/mL Qiirphtyb85-53 ng/mL Insufficient> 30 ng/mL Sufficient*Skyler YARBROUGH. N [...] ORDERAB LES Final Result Performing Organization Address [facility] Co de Phone Number [facility] [address] [place] [phone] * Albumin (07/01/2023 9:59 AM EDT) Albumin Level 4.4 3.5 - 5.0 g/dL [facility] 07/01/2023 9:59 AM EDT 07/01/2023 9:59 AM EDT us Generic External Data Provider LAB BLOOD ORDERAB LES Final Result Performing Organization Address [facility] Co de Phone Number [facility] [address] [place] [phone] * Calcium (07/01/2023 9:59 AM EDT) Calcium 9.6 8.4 - 10.2 mg/dL [facility] 07/01/2023 9:59 AM EDT 07/01/2023 9:59 AM EDT us Generic External Data Provider LAB BLOOD ORDERAB LES Final Result Performing Organization Address [facility] de Phone Number [facility] [address] [place] [phone] * (ABNORMAL) PTH, Intact Without Calcium (07/01/2023 9:59 AM EDT) Parathyroid Hormone, Intact 106.9(H) 8.7 - 77.1 pg/mL [facility] 07/01/2023 9:59 AM EDT 07/01/2023 9:59 AM EDT us Generic External Data Provider LAB BLOOD ORDERAB LES Final Result Performing Organization Address [facility] Co de Phone Number [facility] [address] [place] [phone] documented in this encounter Visit Diagnoses Not on filedocumented in this encounter Additional Health Concerns Assessment Noted Time PHQ-9 Depression Total Score: 2 01/28/20 22 1:14 PM EST documented as of this encounter Care Teams Data Integration Developer Relationship Specialty Start Date End Date Pablo Hill MD [address] [place] [address] PCP - General Internal Medicine 05/25/20 Tamiko Haddad Air Cargo Ground Crew SupervisorBatch Plant Operator 07/09/23 Tamiko Haddad Air Cargo Ground Crew SupervisorBatch Plant Operator 06/27/24 documented as of this encounter
--- OUTSIDE RECORDS SUMMARY | 2024-10-25 10:37 | XMS_ITS | Encounter Summary ---
Author Organization [employer] Address [address] [place] [address] 7 [place] [address] Care Team Providers Care Pvc Loader Name Role Phone Pablo Hill MD Primary Care Prov ider Encounter Details Date Type Department Care Team ([facility] st Contact Info) Description 07/05/2024 Orders Only [facility] MED & PEDS [address] [place], [place] [phone] Pablo Hill MD [address] [place] [address] Social History Tobacco Use Types Packs/Day Years Used Date Smoking Tobacco: Every Day Cigarettes Depression Answer Date Recorded Patient Health Questionnaire-9 Score 2 07/05/2024 Patient Health Questionnaire-9 Score 2 07/05/2024 Last PHQ-9: Questionnaire Data Not on file 0 07/05/2024 Housing Stability Answer Date Recorded What is your housing situation today? I have cande doherty 07/05/[address] you li ve. Do you have problems with any of the following? None of the above 07/05/2024 Food Insecurity Answer Date Recorded Within the past 12 months, y ou worried that your food would run out before you got money to buy more: Never True 07/05/2024 Within the past 12 months,th e food you bought just didn't last and you didn't have enough money to get more: Never True Transportation Answer Date Recorded In the past 12 months, has l ack of transportation kept you from medical appts, meetings, work or from getting things needed for daily living? No 07/05/2024 Utilities Answer Date Recorded In the past 12 months, has t he electric, gas, oil or water company threatened to shut off services in your home? No 07/05/2024 Depression Answer Date Recorded Patient Health Questionnaire-2 Score 2 07/05/2024 Internet Access Answer Date Recorded Internet Access Q1 Yes 07/05/2024 Internet Access Q2 Not on file 07/05/2024 Sex and Gender Information Value Date Recorded Sex Assigned at Male 12/16/2021 10:24 AM EDT Legal Sex Male 10:24 AM EDT Gender Identity Male 12/16/2021 10:24 AM EDT Sexual Orientation Straight 07/07/2024 3: 49 PM EDT documented as of this encounter Functional Status * Over the past 2 weeks, how often have you been bothered by any of the following problems? Question Answer Date of Assessment Author Patient Health Questionnaire-2 Score 2 06/17 9:45 AM Mikayla Mukherjee MA * Little interest or pleasure in doing things Answer Date of Assessment Author Several days 07/05/2024 9:45 AM Suellen Mukherjee MA * Feeling down, depressed, or hopeless Answer Date of Assessment Author Several days 07/05/2024 9:45 AM Suellen Mukherjee MA * Trouble falling or staying asleep, or sleeping too much Answer Date of Assessment Author Not at all 07/05/2024 9:45 AM Suellen Mukherjee MA * Feeling tired or having little energy Answer Date of Assessment Author Not at all 07/05/2024 9:45 AM Suellen Mukherjee MA * Poor appetite or overeating Answer Date of Assessment Author Not at all 07/05/2024 9:45 AM Suellen Mukherjee MA * Feeling bad about yourself - or that you are a failure or have let yourself or your family down Answer Date of Assessment Author Not at all 07/05/2024 9:45 AM Suellen Mukherjee MA * Trouble concentrating on things, such as reading the newspaper or watching television Answer Date of Assessment Author Not at all 07/05/2024 9:45 AM Suellen Mukherjee MA * Moving or speaking so slowly that other people could have noticed? Or the opposite - being so fidgety or restless that you have been moving around a lot more than usual. Answer Date of Assessment Author Not at all 07/05/2024 9:45 AM Suellen Mukherjee MA * Thoughts that you would be better off or hurting yourself in some way Answer Date of Assessment Author Not at all 07/05/2024 9:45 AM Suellen Mukherjee MA * Patient Health Questionnaire-9 Score Answer Date of Assessment Author 2 07/05/2024 9:45 AM Suellen Mukherjee MA * How difficult have these problems made it for you to do your work, take care of things at home, or get along with other people? Answer Date of Assessment Author Somewhat difficult 07/05/2024 9:45 AM Mikayla Mukherjee MA documented as of this encounter Plan of Treatment Not on file documented as of this encounter Visit Diagnoses Not on filedocumented in this encounter Additional Health Concerns Assessment Noted Time PHQ-9 Depression Total Score: 2 07/06/19 9:45 AM EDT documented as of this encounter Care Teams Pvc Loader Relationship Specialty Start Date End Date Pablo Hill MD [address] [place] [phone] PCP - General Internal Medicine 05/25/20 Tamiko Haddad Nut ShellerAcademic Assistant 07/09/23 Tamiko Haddad Nut ShellerAcademic Assistant 06/27/24 documented as of this encounter
--- OUTSIDE RECORDS SUMMARY | 2024-10-25 10:37 | XMS_ITS | Clinical Summary ---
Author Organization [employer] Address [address] [place] [address] [address] [place] [address] Care Team Providers Care Shell Trim Operator Name Role Phone Pablo Hill MD Primary Care Prov ider Allergies Active Allergy Reactions Criticality Noted Date Comments Codeine 05/17/2014 Penicillin G 05/17/2014 Medications albuterol 108 (90 Base) MCG/ACT inhaler Inhale 2 puffs every 4 (four) hours. 03/29/19 22 Active cloNIDine (Catapres) 0.2 MG tablet Take 1 tablet by mouth every 12 (twelve) hours. Active escitalopram (Lexapro) 10 MG tablet Take 1 tablet by mouth at bed time. Active hydrOXYzine pamoate (Vistaril) 25 MG capsule Take 1 capsule by mouth at bed time. Active methadone (Dolophine) 10 MG/5ML solution Take 37 mL by mouth every 12 (twelve) hours. 12/25/19 21 Active nicotine (Nicoderm, Step 2) 14 MG/24HR patch apply 1 patch by transdermal route every day and wear for 16-24 hours. 03/29/19 22 Active nicotine (Nicoderm, Step 1) 21 MG/24HR patch Place 1 patch on the skin at bed time. 03/29/19 22 028 Active nicotine (Nicoderm, Step 3) 7 MG/24HR patch apply 1 patch by transdermal route every day and wear for 16-24 hours. 03/29/19 22 Active nicotine polacrilex (Commit) 4 MG lozenge take 1 lozenge by oral route every 1-2 hours dissolved slowly in the mouth for 6 weeks, then 1 lozenge every 2-4 hours for 3 weeks, then 1 lozenge every 4-8 hours for 2 weeks. 03/29/19 22 Active OLANZapine (ZyPREXA) 5 MG tablet Take 1 tablet by mouth every 12 (twelve) hours. Active risperiDONE (RisperDAL) 1 MG tablet Take 1 tablet by mouth. Active triamcinolone (Kenalog) 0.1 % creamIndication s:Eczema, unspecified type Apply topically if needed in the morning and at bedtime (pain and swelling). 30 g 2 01/28/20 22 Active gabapentin (Neurontin) 400 MG capsule Take 400 mg by mouth 3 times daily. Active atorvastatin (Lipitor) 40 MG tablet TAKE 1 TABLET(40 MG) BY MOUTH IN THE MORNING 90 tablet 10/25/19 25 Active atorvastatin (Lipitor) 40 MG tablet TAKE 1 TABLET(40 MG) BY MOUTH IN THE MORNING 90 tablet 1 04/23/19 25 025 Discontinued Active Problems Problem Noted Date Diagnosed Date Class 1 obesity 11/13/2023 Schizophrenia, paranoid, chronic 11/13/2023 Assessment & Plan (07/05/2024 10:08 AM EDT): Followed by therapist and psych, no active suicidal/homicidal ideas Hallucination, visual 11/13/2023 Colon cancer screening 04/28/2023 [...] reccomendations Mixed hyperlipidemia 05/12/2022 Assessment & Plan (10/13/2024 3:11 PM EDT): On statin therapy, no side effects reported, continue diet/exercise as tolerated, new labs ordered for guidance Assessment & Plan (07/05/2024 10:07 AM EDT): Will order new labs for guidance of therapy, continue atorvastatin on current dose Assessment & Plan (04/28/2023 1:55 PM EDT): [...] Encounters Date Type Department Care Team Description 10/22/2024 Refill [facility] MED & PEDS [address] [place] [address] Pablo Hill MD 10/13/2024 2:45 PM EDT Telemedicine [facility] [address] [place] [address] Pablo Hill MD Mixed hyperlipidemia (Primary Dx) 10/13/2024 Travel 10/12/2024 Telephone [facility] [address] [place] [address] Pablo Hill MD chart prep from Last 3 Months Immunizations Immunization Administration Dates Next Due Influenza injectable quadrivalent [...] t he electric, gas, oil or water [employer] threatened to shut off services in your [...] Orientation Straight 07/07/2024 3: 49 PM EDT Last Filed Vital Signs Vital Sign Reading Time Taken Comments Blood Pressure 102/70 07/05/2024 9:44 AM EDT Pulse 80 07/05/2024 9:44 AM EDT Temperature 37.1 C (98.7 F) 07/05/2024 9:44 AM EDT Respiratory Rate 20 07/05/2024 9:44 AM EDT Oxygen Saturation - - Inhaled Oxygen Concentration - - Weight 95.7 kg (211 lb) 07/05/2024 9:44 AM EDT Height 172.7 cm (5' 8 ) 07/05/2024 9:44 AM EDT Body Mass Index 32.08 07/05/2024 9:44 AM EDT Plan of Treatment Health Maintenance Due Date Last Done Comments CT Colonography 1977 Colonoscopy 1977 Colorectal Cancer Screening 1977 FIT DNA/Cologuard 1977 FIT 1977 FOBT 1977 Sigmoidoscopy 1977 Disability Screening 1977 Family Planning (PISQ) 01/14/1992 Hepatitis B Vaccines (1 of 3 - 19+ 3-dose series) 01/14/1996 Pneumococcal Vaccine: Pediatrics (0 to 5 Years) and At-Risk Patients (6 to 49) Years (2 of 2 - PCV) 10/18/2016 10/19/2015 COVID-19 Vaccine (4 - season) 2024 01/11/2022, 01/18/2021, 07/10/2020 Influenza Vaccine (#1) 2024 12/11/2020 Tobacco Screening 11/12/2024 11/13/2023 Alcohol/Substance Use Screening 07/05/2025 07/05/2024 Depression Screening 07/05/2025 07/05/2024, 07/06/19 SDOH Screening 07/05/2025 07/05/2024 Zoster Vaccines (1 of 2) 2027 Lipid [...] patient's age to complete this topic Meningococcal B Vaccine Aged Out No l onger eligible based on patient's age to complete [...] 11:30 AM EDT) Triglycerides 324(H) <150 mg/dL [facility] Comment:Desirable Triglyceri de: less than 150 mg/dLBorderline High Triglyceride 150-199 mg/dLHigh Triglyceride: 200-499 mg/dLVery High Triglyceride: greater than or equal to 5OO mg/dL Cholesterol 189 <200 mg/dL [facility] Comment:Desirable Cholestero l: less than 200 mg/dLBorderline High Cholesterol: 200-239 mg/dLHigh Cholesterol: greater than 239 mg/dL LDL Cholesterol Calculated 92 <100 mg/dL [facility] Comment:Desirable LDL: less than 100 mg/dLNear Optimal/Above Optimal LDL: 110- 129 mg/dLBorderline High LDL: 130-159 mg/dLHigh LDL: 160-189 mg/dLVery High LDL: greater than or equal to 190 mg/dL HDL Cholesterol 33(L) >40 mg/dL [facility] Comment:Desirable HDL: great er than 40 mg/dL Note: This HDL assay may give artificially low results in patients with liver disease. Blood Venous blood specimen / Unknown 04/30/2023 11:30 AM EDT 04/30/2023 2:14 PM EDT Pablo Su MD LAB BLOOD ORDERABL ES Final Result Performing Organization Address [facility]/ZIP Co de Phone Number [facility] [address] [place] [phone] * Hepatitis C Antibody with Reflex to HCV, RNA, Quantitative, Real-Time PCR (12/04/2022 11:11 AM EDT) Hepatitis C Antibody Nonreactive Nonreactive [facility] Comment:Antibodies to HCV no t detected; does not exclude early acuteHCV infection. 12/04/2022 11:1 1 AM EDT 12/04/2022 2:10 PM EDT Pablo Su MD LAB BLOOD ORDERABL ES Final Result Performing Organization Address [facility] Co de Phone Number [facility] [address] [place] [phone] * HIV 1/2 ANTIGEN/ANTIBODY,FOURTH GENERATION W/RFL (12/25/2020 8:31 AM EST) HIV-1/2 ANTIGEN AND ANTIBODIES, 4TH GENERATION W/ REFLEX NON-REACT COSME NON-REACT COSME [facility] Comment: HIV-1 antigen and HIV-1/HIV-2 antibodies were not detected. There is no laboratory evidence of HIV infection. PLEASE NOTE: This information has been disclosed to you from records whose confidentiality may be protected by state law. If your state requires such protection, then the state law prohibits you from making any further disclosure of the information without the specific written consent of the person to whom it pertains, or as otherwise permitted by law. A general authorization for the release of medical or other information is NOT sufficient for this purpose. For additional information please refer to http://education.[employer]/faq/MSU154 (This link is being provided for informational/ educational purposes only.) The performance of this assay has not been clinically validated in patients less than 2 years old. 12/25/2020 8:31 AM EST us Pablo Su MD LAB BLOOD ORDERABL ES Final Result [facility] [address] from Last 3 Months or Most Recently Relevant to Health Maintenance Insurance [employer] Care Teams Shell Trim Operator Relationship Specialty Start Date End Date Pablo Hill MD [address] [place] [address] PCP - General Internal Medicine 05/25/20 Tamiko Haddad Corporate Administrative AssistantRefractory Bricklayer 07/09/23 Tamiko Haddad Corporate Administrative AssistantRefractory Bricklayer 06/27/24
--- OUTSIDE RECORDS SUMMARY | 2024-10-25 10:37 | XMS_ITS | Encounter Summary ---
Author Organization [employer] Address [address] [place] [address] [place] [address] Care Team Providers Care Artificial Leather Calender Operator Name Role Phone Pablo Hill MD Primary Care Prov ider Reason for Visit * Reason Comments Med Refill Encounter Details Date Type Department Care Team ([facility] st Contact Info) Description 10/22/2024 Refill [facility] MED & PEDS [address] [place], [place] [phone] Pablo Hill MD [address] [place] [address] Social History Tobacco Use Types Packs/Day Years [...] documented as of this encounter Care Teams Artificial Leather Calender Operator Relationship Specialty Start Date End Date Pablo Hill MD [address] [place] [phone] PCP - General Internal Medicine 05/25/20 Tamiko Haddad Bakery Pastry InternshipDeputy Commonwealth'S Attorney 07/09/23 Tamiko Haddad Bakery Pastry InternshipDeputy Commonwealth'S Attorney 06/27/24 documented as of this encounter
--- OUTSIDE RECORDS SUMMARY | 2024-10-25 10:37 | XMS_ITS | Encounter Summary ---
Author Organization [employer] Address [address] [place] [address] 7 [place] [address] Care Team Providers Care Process Assistant Name Role Phone Pablo Hill MD Primary Care Prov ider Encounter Details Date Type Department Care Team ([facility] st Contact Info) Description 11/13/2023 Orders Only [facility] & PEDS [address] [place], [place] [phone] Pablo Hill MD [address] [place] [address] Schizophrenia, paranoid, chronic (CMS/HCC) (Primary Dx); Hallucination, [...] documented as of this encounter Care Teams Process Assistant Relationship Specialty Start Date End Date Pablo Hill MD [address] [place] [phone] PCP - General Internal Medicine 05/25/20 Tamiko Hadadd Music Box MechanicRda 07/09/23 Tamiko Haddad Music Box MechanicRda 06/27/24 documented as of this encounter
[2024-10-25 14:13] LABS: MANUAL DIFF FLAG NO
[2024-10-25 14:25] LABS: Hematocrit 40.6 % (42.0-52.0); Hemoglobin 14.1 g/dl (14.0-18.0); Imm Gran Abs Auto 0.04 X10*3/uL (0.00-0.03); Imm Gran Pct Auto 0.5 % (0.0-0.4); Lymphocytes Absolute Auto 2.6 X10*3/uL (1.2-4.9); Mean Corpuscular HGB Conc 34.7 g/dl (31.0-36.0); Mean Corpuscular Hemoglobin 31.5 pg (27.0-33.0); Mean Corpuscular Volume 90.6 fL (80.0-98.0); NRBC Abs Auto 0.000 X10*3/uL (0.0-0.012); NRBC Pct Auto 0.0 /100WBC (0.0-0.2); Platelet Count 197 X10*3/uL (160-400); Red Blood Count 4.48 X10*6/uL (4.60-5.80); White Blood Count 7.3 X10*3/uL (4.8-10.8)
[2024-10-25 15:04] LABS: Alanine Aminotransferase 39 U/L (0-40); Albumin Level 4.1 g/dL (3.5-5.0); Alkaline Phosphatase 114 U/L (39-117); Anion Gap 15 (12-20); Aspartate Amino Transferase 57 U/L (5-37); Blood Urea Nitrogen 15 mg/dL (9-16); Calcium 8.8 mg/dL (8.4-10.2); Carbon Dioxide 20 mmol/L (22-29); Chloride 107 mmol/L (96-108); Cholesterol 220 mg/dL (<200); Estimated Glomerular Filt Rate > 60; HDL Cholesterol 27 mg/dL (>40); Potassium 4.1 mmol/L (3.3-5.1); Sodium 138 mmol/L (135-145); Total Protein 7.1 g/dL (6.5-8.0); Triglycerides 730 mg/dL (<150)
== END 2024-10-25 09:13 | disposition home or self-care (01) ==
LOC: HO.CHCLDS 09:12
PROVIDERS: Visit Provider Internal Medicine
DX: E78.2 Mixed hyperlipidemia (principal)
CPT/HCPCS: 36415; 80053; 80061; 84443; 85025